=== PATIENT | female | born 1935 | race Caucasian/White ===

== ENCOUNTER 2021-10-30 10:12 | Outpatient (CLI) | payer OTHER, SELFPAY ==
[2021-10-30 14:02] LABS: Chloride* 108 mmol/L (96-114); Sodium* 139 mmol/L (135-149)
[2021-10-30 14:03] LABS: Potassium* 4.3 mmol/L (3.6-5.1)
[2021-10-30 14:05] LABS: Carbon Dioxide* 32 mmol/L (20-32); Creatinine* 0.9 mg/dL (0.5-1.5); Estimated Glomerular Filt Rate 63.04
[2021-10-30 14:06] LABS: Blood Urea Nitrogen* 17 mg/dL (7-30); Calcium* 9.5 mg/dL (8.4-10.6); Glucose* 101 mg/dL (60-115)
== END 2021-10-30 10:13 | disposition home or self-care (01) ==
LOC: FRMREF 10:13
PROVIDERS: PCP Family Medicine; Visit Provider Family Medicine
DX: Z01.810 Encounter for preprocedural cardiovascular examination (principal); Z01.818 Encounter for other preprocedural examination
CPT/HCPCS: 80048

== ENCOUNTER 2021-11-12 09:50 | Outpatient (CLI) | payer OTHER, SELFPAY | END 2021-11-12 09:51 | disposition home or self-care (01) | PROVIDERS: PCP Family Medicine; Visit Provider Orthopaedic Surgery Sports Medicine | DX: Z01.818 Encounter for other preprocedural examination (principal) | CPT/HCPCS: 36415; 86850; 86900; 86901 ==

== ENCOUNTER 2021-11-14 09:29 | Day surgery (SDC) | payer OTHER, SELFPAY ==
[2021-11-14] VITALS (22 sets, daily range): BP systolic 87–152; BP diastolic 49–79; PULSE 45–109; RESP 14–20; TEMP 35.3–36.6; O2SAT 91–99; BMI 25.0
[2021-11-14] MEDS: LACTATED RINGERS 1000 ML 1,000 ML 35 ML IV (10:30)
[2021-11-14] MEDS: LACTATED RINGERS 1000 ML 1,000 ML 100 ML IV (10:30)
[2021-11-14] MEDS: SODIUM CHLORIDE 0.9 % (FLUSH) 10 ML SYRINGE IVF (11:13)
[2021-11-14] MEDS: OXYCODONE (CR) 10 MG TAB.ER.12H PO (11:20)
[2021-11-14] MEDS: CELECOXIB 200 MG CAPSULE PO ×2 (11:20→21:29)
[2021-11-14] MEDS: ACETAMINOPHEN 500 MG TABLET 1000 MG PO ×2 (11:20→18:08)
--- NOTE | 2021-11-14 11:28 | CRLHL7_ITS ---
For Patients: As a result of the Cures Act, medical imaging exams and procedure reports are released immediately into your electronic medical record. You may view this report before your referring provider. If you have questions, please contact your health care provider. Indication: Intra op ALLAN exam. Technique: Fluoroscopy provided during left hip arthroplasty. 44.9 seconds fluoro time. One image. Comparison: None. Findings/Impression : Fluoroscopic spot image obtained during left hip arthroplasty. Dictated by Hali Arana MD @ 11/14/2021 3:17:13 PM (Electronically Signed)
--- NOTE | 2021-11-14 11:46 | SUR.PREOP ---
TIME?OUT:?1148, left hip PT/RN/MDA?VERIFICATION?OF?SURGICAL?SITE,?PROCEDURE,?AND?CONSENT OBTAINED?PRIOR?TO?INVASIVE?PROCEDURE.
[2021-11-14] MEDS: MIDAZOLAM HCL 1 MG/ML inj IVP (11:48)
[2021-11-14] MEDS: fentaNYL 100 MCG/2 ML inj IVP (11:48)
[2021-11-14] MEDS: CEFAZOLIN 1 GM inj IVP (12:55)
--- NOTE | 2021-11-14 13:15 | W.PM.NB ---
Nerve Block Nerve Block Date Seen: 11/14/21 Type of block requested by surgeon for post-operative analgesia: TAD/LFCN Side: left Time out performed: Yes Verification of patient name: Yes Verification of date of : Yes Site marking: site marked Name of person performing procedure: Paul Continuous monitoring Was continuous monitoring of O2 sat, B/P, monitoring specialist, recorded every 15 minutes?: Yes Procedure Checklist: sterile prep, needles and gloves Ultrasound guided. Images saved: Yes Medications given in 5ml increments after negative aspiration: Ropivicaine %: 0.5 mL: 20 Needle gauge: 20 Decadron (mg): 10 Precedex (mcg): 25 Patient tolerated procedure well: Yes Additional comments: Needle noted adjacent to nerve Block Charges Block Charge (with Pro Fee): Other Periph Nerve Block Use of Ultrasound Machine for Block: Yes- US Guidance/pain block
--- NOTE | 2021-11-14 13:28 | SUR.OPER ---
3000cc BAG NACL USED FOR IRRIGATION IN THE LEFT HIP WITH PULSE/WOOD TREATING INSPECTOR BY Efrain AT 13:46
--- NOTE | 2021-11-14 13:37 | SUR.OPER ---
? PATIENT QUESTIONS ANSWERED SATISFACTORILY PREOPERATIVELY.? PATIENT BROUGHT TO OR #3 PER CART.? Patient positioned supine on OR #3 bed.?The perioperative?team supported arms bilaterally on arm boards.? Final approval of positioning by surgeon.?
--- NOTE | 2021-11-14 14:20 | CRLHL7_ITS ---
For Patients: As a result of the Cures Act, medical imaging exams and procedure reports are released immediately into your electronic medical record. You may view this report before your referring provider. If you have questions, please contact your health care provider. Indication: Postop left ALLAN. Technique: Pelvis and left hip 2 views. Comparison: MRI left hip 10/05/2021. Findings: Interval postoperative changes of left total hip arthroplasty. Hardware appears intact and well positioned. No acute fracture identified. Postoperative soft tissue gas about the left hip. Degenerative changes of the right hip and pubic symphysis. Impression: Intact left ALLAN with expected immediate postoperative findings. Dictated by Hali Arana MD @ 11/14/2021 3:19:58 PM (Electronically Signed)
--- NOTE | 2021-11-14 14:31 | P.ORPRC_ITS ---
Procedure Note Date of procedure: 11/14/21 Procedure: PREOPERATIVE DIAGNOSIS: 1. Left hip osteoarthritis, severe, primary POSTOPERATIVE DIAGNOSIS: 1. Left hip osteoarthritis, severe, primary PROCEDURE: 1. Left total hip arthroplasty-anterior approach 2. 06499 - intraoperative fluoroscopy up to 1 hour. SURGEON: Jassi Lopez MD. SOCIAL SERVICE WORKER: Alonzo Mcguire PA-C; Julio César CABA - Of note, a skilled dental front office assistant was critical for this case to aid in patient positioning, tissue retraction, limb manipulation/positioning, dislocation/relocation, patient safety, and closure. ANESTHESIA: Spinal anesthetic EBL: 450 mL IMPLANTS: DePuy J&J uncemented total hip [place] cup size 50, hole eliminator, +4 neutral liner Actis stem, high offset, size 5 +1 mm ceramic 32mm head. COMPLICATIONS: None evident INDICATIONS: The patient is a pleasant 86-year-old female who has experienced severe left hip pain and difficulty bearing weight. Workup included x-rays which revealed severe osteoarthrosis in the hip. Given the deformity, the dysfunction, and the pain, as well as the failure of nonoperative management, recommendation was made for surgery. FINDINGS: Moderate effusion upon entering the joint. Full-thickness chondral loss broadly through the femoral head. Osteophytes around the femoral head/neck junction and perimeter of the acetabulum. DESCRIPTION OF PROCEDURE: Following a thorough discussion of risks, benefits, and alternatives consent was obtained and the left hip was marked. The patient was brought to the operating room and placed supine on the operating table. Induction of anesthesia was undertaken. 1 g IV Ancef and 1 g tranexamic acid was administered within 1 hr of incision preoperatively. Proper time-out was performed identifying proper patient, site, procedure. The operative extremity was prepped and draped in the appropriate sterile fashion using ChloraPrep after the patient was positioned on the [place] table with head in neutral alignment and all bony prominences well padded. C-arm fluoroscopic imaging was utilized to confirm proper pelvis rotation and position, and to get true AP films of both the contralateral left, and the affected left hip. This is for comparison. A longitudinal incision was made starting approximately 1 cm distal to the ASIS, and 3-4 cm lateral. The incision was extended distally aiming toward the lateral border the patella. Sharp incision through skin and bovie cautery through the subcutaneous tissue allowed identification of the TFL fascia. This was sharply divided, and the fascia bluntly released from the muscle fibers as we dissected medial. Upon coming to the medial border, we were able to retract the TFL laterally, and penetrated the deeper fascia and identify the crossing circumflex vessels. These were ligated/cauterized. The rectus was elevated from the capsule, and retractors placed laterally and medially along the femoral neck to help with visualization of the capsule. We then performed an inverted T capsulotomy. The capsule was tagged for later repair. Retractors were placed inside the capsule. The femoral neck was visualized after releasing medially down to the lesser trochanter, along the saddle laterally, and up onto the acetabulum. The femoral neck cut was made in line with our preoperative templating. The head was removed in a single piece, and sized. We turned our attention to acetabular preparation. Initially, the labrum was resected from around the perimeter, the pulvinar was excised, allowing us to visualize the false wall. We started the reaming with a 43 mm reamer. This was medialized down to the true wall. We then enlarged our reamers sequentially up to one size less than the selected cup size. We trialed at the same size and found it to have an excellent fit. The selected cup was then opened, inserted, and impacted in line with the goal of 40-45? of abduction, and 20-25? of anteversion. This was confirmed on C-arm fluoroscopic imaging to be in the appropriate/goal position. Once the cup was placed we placed a hole eliminator and a liner consistent with preop planning. Attention was turned to the femoral preparation. The limb was extended, externally rotated, and adducted. The posteromedial capsule was released, as retractors were placed allowing excellent access to the proximal femur. Initially a box finisher was followed by canal finder followed by various broaches. We broached sequentially up to size noted above, found it to have excellent rotational control, and trialing various heads and necks, revealed that appropriate neck offset, and the above noted head size provided the greatest stability, and yarsani of length, and offset. C-arm fluoroscopic imaging confirmed position of the stem, as well as leg lengths, which were compared with the pre procedure all fluoroscopic images. Trial implants were removed, the real femoral stem inserted, as was the ceramic head. After reducing, the leg was placed through range of motion and stability was confirmed anterior, posterior, and lateral. A 3 min Betadine soak was then performed, and thorough irrigation with normal saline followed. Closure of the capsule was performed with #1 PDS. Bleeding was confirmed to be controlled at this stage, and the TFL fascia was closed with #0 strata fix. Subcutaneous, and subcuticular closure was performed with 2-0 Vicryl and 4-0 Monocryl, respectively. Dressings were applied, and the patient was awoken from anesthesia and transferred the PACU in stable condition. A skilled dental front office assistant was critical for this case to aid in patient positioning, tissue retraction, proximal femur exposure, limb manipulation/positioning, dislocation/relocation, patient safety, and closure. PLAN: 1. Weight bear as tolerated operative extremity. 2. 23 hr perioperative antibiotics. 3. Ice. 4. PT/OT consults for ambulation assistance/mobility education. 5. Social work consult for discharge planning. 6. DVT prophylaxis with at SCDs, Sreedhar Hose, and Xarelto x5 days followed by aspirin for a total of 1 month..
--- NOTE | 2021-11-14 14:46 | W.ANESCHARGE ---
Anesthesia Charges Start Date/Time Anesthesia Start Date: 11/14/21 Anesthesia Start Time: 12:35 Stop Date/Time Anesthesia Stop Date: 11/14/21 Anesthesia Stop Time: 14:45 Summary Emergency: No Extremes of Age: Over 70-CPT 23752
--- NOTE | 2021-11-14 15:17 | W.ANESCHARGE ---
Anesthesia Charges Start Date/Time Anesthesia Start Date: 11/14/21 Anesthesia Start Time: 12:35 Stop Date/Time Anesthesia Stop Date: 11/14/21 Anesthesia Stop Time: 14:45 Summary Emergency: No Extremes of Age: Over 70-CPT 25224
[2021-11-14] MEDS: 0.9 % SODIUM CHLORIDE 500 ML IV (16:50)
[2021-11-14] MEDS: LACTATED RINGERS 1000 ML 1,000 ML 75 ML IV (18:17)
[2021-11-14] MEDS: CEFAZOLIN 1 GM in 0.9 % SODIUM CHLORIDE Mini-bag 100 ML IVPB (18:38)
--- NOTE | 2021-11-14 19:34 | PC.NURSE ---
Pt. alert and oriented x3. Very pleasant and cooperative. Dressing to L Hip, clean, dry, and intact. Lit Hugger applied at 1820 and off at 1850 Temp up to 97.4. Pt. diet advanced to regular diet, tolerated well. No pain reported. Pt. Pressures soft upon settling to unit, 500CC bolus given and patient's status improved. Pt. complained of chest pain when up to floor. EKG done at 1612 showing sinus claude w/T wave abnormalities. MD updated. pt. reports this pain is subsiding.
--- NOTE | 2021-11-14 20:09 | P.IMCN_ITS ---
Date of Consult Patient: [facility] Patient Consult date: 11/14/21 Requesting Physician: Orthopedics Primary Care Provider: Evangelina Pope MD Consult Narrative Reason for consult: Perioperative management of hyperlipidemia. Narrative: Francesca Zaidi is a 86 year old woman who is generally healthy and presents for an elective left total hip arthroplasty due to severe symptomatic left coxarthrosis. Surgery is undertaken successfully without any apparent complications. Patient indicates pain is well controlled at this time. Denies nausea or vomiting. Denies chest heaviness, pressure, tightness, or pain. Denies syncope or near-syncope. Denies palpitations. Denies cough or shortness of breath. Review of Systems Status of ROS: Reports: 6 or more systems reviewed and unremarkable except as noted in History and below Narrative: Her biggest challenge over the recent past has been when attempting to transfer. She indicates that when she sits or lays down she is fine. When she stands or walks she has fine. She states she has significant amount of pain when transferring from any position to another, such as supine to sitting or sitting to standing and vice versa. No recent illnesses. I reviewed her pre medical evaluation per Dr. Tellez early dated 10/30/2021. No contraindications to proceeding with the surgery. COVID testing negative. Denies bowel or bladder concerns. No focal motor neurologic deficits. Has not had a recurrence of her breast cancer. No weight gain or weight loss. [facility] Medical History (Updated 11/14/21 @ 20:18 by Renato Rubio MD) Acute peptic ulcer (12/24/11) Anal fissure (12/24/11) Closed fracture of humerus (11/26/11) Cystocele without uterine prolapse Degeneration of intervertebral disc of lumbosacral region (11/26/11) Hyperlipidemia (11/26/11) Incontinence of feces Insomnia Malignant neoplasm of breast (11/26/11) Osteoarthritis of both hands Osteoma Osteopenia Urge incontinence of urine Surgical History (Updated 11/14/21 @ 20:18 by Renato Rubio MD) Amputation of toe H/O vein stripping History of left breast biopsy (11/26/11) History of mastectomy History of shoulder surgery (11/26/11) History of tubal ligation (11/26/11) Hx of right mastectomy (~07/29/77) S/P right knee arthroscopy Family History Aunt Colorectal cancer Mother Macular degeneration Heart attack Father Hyperlipidemia Parkinsons Glaucoma Intracranial hemorrhage Social History Narrative: Exercises regularly Has 3 children Non-smoker Smoking Status: Never smoker How often do you have a drink containing alcohol: monthly or less Alcohol type: wine How many standard drinks containing alcohol do you have on a typical day: 1 or 2 How often do you have six or more drinks on one occasion: Never AUDIT-C Alcohol total score: 1 Non-prescribed substance use: over the counter (eg: immodium) Non-prescribed substance use details: lutein, acetaminphen, fish oil, multivitamin, calcium Caffeine: Yes (coffee, 2-3 small cups/day) Meds Home Medications and Allergies Home Medications Medication Instructions Recorded Confirmed Type cholecalciferol (vitamin D3) 25 1,000 unit PO DAILY tab 10/30/21 11/14/21 History mcg (1,000 unit) tablet lutein 20 mg-zeaxanthin 1,000 mcg cap PO DAILY cap 10/30/21 10/30/21 History capsule meloxicam 7.5 mg tablet 7.5 mg PO DAILY PRN 10/30/21 11/14/21 History omega 5-zzw-wnw-fish oil 1,000 mg 1 cap PO DAILY 10/30/21 11/14/21 History (120 mg-180 mg) capsule (Fish Oil) simvastatin 20 mg tablet 20 mg PO HS 10/30/21 11/14/21 History Allergies Allergy/AdvReac Type Severity Reaction Status Date / Time No Known Allergies Allergy Verified 11/14/21 10:23 Exam Narrative: Exam Narrative: Awake. Alert. Oriented to self, place, time, situation. Appears comfortable. No acute distress. Articulate and cooperative. Mood and affect are congruent. Lungs are clear to auscultation. Heart tones with regular rhythm. Abdomen with active bowel sounds, soft, nontender. Extremities without edema. No focal motor neurologic deficits. Const: Vital Signs, click to edit/add: Vital Signs - 24 hr 11/14/21 10:38 11/14/21 11:50 11/14/21 11:58 Temperature 97.0 F L 97.0 F L 97.0 F L Pulse Rate 66 55 L 59 L Pulse Rate [Right Pulse Oximeter] Respiratory Rate 20 20 20 Blood Pressure 152/79 H 152/78 H 135/76 Blood Pressure [Le ft Arm] Pulse Oximetry 97 99 98 11/14/21 14:45 11/14/21 14:50 11/14/21 14:55 Temperature 97.2 F L Pulse Rate 67 67 74 Pulse Rate [Right Pulse Oximeter] Respiratory Rate 18 20 20 Blood Pressure 104/57 L 100/58 L 103/61 Blood Pressure [Le ft Arm] Pulse Oximetry 96 96 96 11/14/21 15:00 11/14/21 15:05 11/14/21 15:10 Temperature 97.2 F L Pulse Rate 58 L 57 L 55 L Pulse Rate [Right Pulse Oximeter] Respiratory Rate 18 18 18 Blood Pressure 103/61 104/63 111/64 Blood Pressure [Le ft Arm] Pulse Oximetry 95 98 98 11/14/21 15:16 11/14/21 15:25 11/14/21 15:30 Temperature 96.4 F L 96.4 F L Pulse Rate 58 L 57 L Pulse Rate [Right Pulse Oximeter] Respiratory Rate 18 14 14 Blood Pressure 104/58 L Blood Pressure [Le ft Arm] 92/51 L 87/54 L Pulse Oximetry 98 96 11/14/21 15:45 11/14/21 16:00 11/14/21 16:15 Temperature 96.4 F L 96.4 F L 95.5 F L Pulse Rate Pulse Rate [Right Pulse Oximeter] 45 L 49 L 56 L Respiratory Rate 14 14 14 Blood Pressure Blood Pressure [Le ft Arm] 101/54 L 88/49 L 101/55 L Pulse Oximetry 96 96 96 11/14/21 16:30 11/14/21 17:00 11/14/21 18:00 Temperature 95.5 F L 96.0 F L 97.4 F L Pulse Rate Pulse Rate [Right Pulse Oximeter] 56 L 62 109 H Respiratory Rate 16 16 16 Blood Pressure Blood Pressure [Le ft Arm] 100/51 L 105/50 L 134/68 Pulse Oximetry 91 98 98 11/14/21 19:33 Temperature 97.4 F L Pulse Rate Pulse Rate [Right Pulse Oximeter] 94 Respiratory Rate 16 Blood Pressure Blood Pressure [Le ft Arm] 112/68 Pulse Oximetry 94 Assessment and Plan Assessment and plan (1) Status post left hip replacement: Status: Acute (2) Arthritis of left hip: Status: Acute (3) Hyperlipidemia: Status: Acute (4) Hx of right mastectomy: Status: Acute (5) Malignant neoplasm of breast: Status: Acute Plan 1. Reviewed impression with patient. Answered her questions. 2. Will follow with Orthopedic surgery while patient is in hospital. 3. Agree with venous thromboembolism prophylactic efforts. 4. Agree with perioperative antibiotic prophylaxis. 5. Will hold her statin medication while in the hospital. 6. Agree with Pulmonary Hygiene efforts postoperatively.
[2021-11-14] MEDS: SENNOSIDES 1 TAB TABLET 2 TAB PO (21:29)
[2021-11-14] MEDS: diphenhydrAMINE 50 MG/ML inj IVP (21:40)
[2021-11-14] MEDS: OXYCODONE 5 MG TABLET PO (22:22)
[2021-11-15] MEDS: ACETAMINOPHEN 500 MG TABLET 1000 MG PO ×3 (00:15→12:53)
[2021-11-15 03:00] VITALS: BP 117/71; PULSE 79; RESP 16; TEMP 36.6; O2SAT 93
[2021-11-15] MEDS: CEFAZOLIN 1 GM in 0.9 % SODIUM CHLORIDE Mini-bag 100 ML IVPB ×2 (03:19→10:35)
[2021-11-15] MEDS: OXYCODONE 5 MG TABLET PO (03:19)
[2021-11-15] MEDS: LACTATED RINGERS 1000 ML 1,000 ML 75 ML IV (06:23)
--- NOTE | 2021-11-15 06:52 | PC.NURSE ---
Shift 7p-7a: Pt. AOx4, following commands, VSS. Pt. tolerating weight bearing on LT leg, sat in chair last night and has been up to bedside commode for voiding. Pt. states she has slight pain well controlled by scheduled Tylenol and 5mg Oxycodone PRN. Ice pack applied to surgical site, dressing is C/D/I. Pt. receiving LR @ 75mL/hr until PO intake is adequate.
[2021-11-15 07:00] VITALS: BP 96/56; PULSE 85; RESP 18; TEMP 37.1; O2SAT 95
[2021-11-15 07:23] LABS: Hematocrit 31.4 % (33.0-51.0); Hemoglobin* 10.3 gm/dL (12.0-16.0); Immature Granulocytes Abs Auto 0.01 K/uL (0.00-0.30); Lymphocytes Percent Auto 7.7 % (20-44); Mean Corpuscular HGB Conc 33 gm/dL (32-36); Mean Corpuscular Hemoglobin 30 pg (26-34); Mean Corpuscular Volume 91 fL (80-100); Monocytes Percent Auto 6.5 % (0.0-11.0); Neutrophils Percent Auto 85.7 % (42.0-72.0); Platelet Count* 229 K/uL (140-440); RDW Coefficient of Variation % 13.4 % (11.5-15.5); Red Blood Count 3.47 m/uL (4.00-5.20); White Blood Count* 11.92 K/uL (4.50-11.00)
[2021-11-15 07:54] LABS: Slide Review Reflex No
--- NOTE | 2021-11-15 08:03 | PM.ORPN ---
Subjective Subjective Date Seen: 11/15/21 Principal diagnosis: Status postop day 1 left total hip arthroplasty - anterior approach Interval history: Patient reports doing well. Reported some chest pain immediately postop that quickly resolved; no residual symptoms. No acute events overnight. Pain managed with scheduled /PRN medications and ice. DVT prophylaxis rivaroxaban, bilateral knee high Sreedhar stockings, and SCDs. Denies fevers, chills, aches, N/V, CP, chest tightness or heaviness, SOB/MAURICIO, tachycardia, or lightheadedness. Ortho Exam Narrative Exam Narrative: -Patient appears comfortable in bed, eating breakfast; no apparent acute distress -Alert and oriented times 3 -Operative hip swollen; soft tissues supple; no erythema. No ecchymosis. No excessive warmth. -Surgical dressing clean, dry, intact; no obvious drainage, no erythematous streaking peripheral to the bandage -Bilateral calves soft and supple; no significant swelling, edema, tenderness, erythema, discoloration, warmth, or palpable cords -2+ DP/PT pulses, intact dermatomes and myotomes distally (5/5 strength). Noted numbness lateral femoral cutaneous nerve distribution; notes sensation to deeper touch Const Vital Signs, click to edit/add: Vital Signs - 24 hr 11/14/21 10:38 11/14/21 11:50 11/14/21 11:58 Temperature 97.0 F L 97.0 F L 97.0 F L Pulse Rate 66 55 L 59 L Pulse Rate [Right Pulse Oximeter] Respiratory Rate 20 20 20 Blood Pressure 152/79 H 152/78 H 135/76 Blood Pressure [Left Arm] Pulse Oximetry 97 99 98 11/14/21 14:45 11/14/21 14:50 11/14/21 14:55 Temperature 97.2 F L Pulse Rate 67 67 74 Pulse Rate [Right Pulse Oximeter] Respiratory Rate 18 20 20 Blood Pressure 104/57 L 100/58 L 103/61 Blood Pressure [Left Arm] Pulse Oximetry 96 96 96 11/14/21 15:00 11/14/21 15:05 11/14/21 15:10 Temperature 97.2 F L Pulse Rate 58 L 57 L 55 L Pulse Rate [Right Pulse Oximeter] Respiratory Rate 18 18 18 Blood Pressure 103/61 104/63 111/64 Blood Pressure [Left Arm] Pulse Oximetry 95 98 98 11/14/21 15:16 11/14/21 15:25 11/14/21 15:30 Temperature 96.4 F L 96.4 F L Pulse Rate 58 L 57 L Pulse Rate [Right Pulse Oximeter] Respiratory Rate 18 14 14 Blood Pressure 104/58 L Blood Pressure [Left Arm] 92/51 L 87/54 L Pulse Oximetry 98 96 11/14/21 15:45 11/14/21 16:00 11/14/21 16:15 Temperature 96.4 F L 96.4 F L 95.5 F L Pulse Rate Pulse Rate [Right Pulse Oximeter] 45 L 49 L 56 L Respiratory Rate 14 14 14 Blood Pressure Blood Pressure [Left Arm] 101/54 L 88/49 L 101/55 L Pulse Oximetry 96 96 96 11/14/21 16:30 11/14/21 17:00 11/14/21 18:00 Temperature 95.5 F L 96.0 F L 97.4 F L Pulse Rate Pulse Rate [Right Pulse Oximeter] 56 L 62 109 H Respiratory Rate 16 16 16 Blood Pressure Blood Pressure [Left Arm] 100/51 L 105/50 L 134/68 Pulse Oximetry 91 98 98 11/14/21 19:33 11/14/21 20:00 11/14/21 21:00 Temperature 97.4 F L 97.6 F 97.7 F Pulse Rate Pulse Rate [Right Pulse Oximeter] 94 92 94 Respiratory Rate 16 18 18 Blood Pressure Blood Pressure [Left Arm] 112/68 108/64 122/70 Pulse Oximetry 94 95 11/14/21 23:00 11/15/21 03:00 Temperature 97.9 F 97.9 F Pulse Rate Pulse Rate [Right Pulse Oximeter] 87 79 Respiratory Rate 16 16 Blood Pressure Blood Pressure [Left Arm] 108/59 L 117/71 Pulse Oximetry 94 93 Assessment and Plan Assessment and plan (1) Status post left hip replacement: Problem details: Anterior approach Status: Acute Assessment and Plan: - Complete 23 hour perioperative antibiotics. - PT/OT consult for education and assistance. - Social work consult for discharge planning - Prescribed analgesics as needed - DVT prophylaxis: Rivaroxaban, bilateral knee high Sreedhar Hose stockings and SCDs - Anticipation is for discharge to home with spouse (11/15/2021) if the patient remains medically stable, pain is controlled, and they are safe with mobilization. (2) Arthritis of left hip: Status: Acute (3) Hyperlipidemia: Status: Acute (4) Hx of right mastectomy: Status: Acute (5) Malignant neoplasm of breast: Status: Acute (6) Acute postoperative anemia due to expected blood loss: Problem details: Surgically related Status: Acute Assessment and Plan: Hgb 10.3, asymptomatic (pt denies CP, SOB/MAURICIO, tachycardia, tachypnea, lightheadedness or dizziness)
--- NOTE | 2021-11-15 08:11 | P.DS_ITS ---
DS: Providers Provider Date Seen: 11/15/21 Date of admission: 11-14-21 to med/surg recovery Primary care physician: Evangelina Pope MD Consults: 11/14/21 15:56 Consult to Occupational Therapy [CONS] Routine Comment: Reason(s) for OT Consult:: ADLs Prior to Discharge Any Restrictions?:: No Restrictions Comment: Consult to Physical Therapy [CONS] Routine Comment: Ambulate in the quinones today Reason(s) for PT Consult:: THR TX Protocol POD#0 Any Restrictions?:: Wt Bearing as Tolerated Comment: Nursing Activity: See nursing activity order Consult to Physician [CONS] Routine Comment: Consulting Provider: Hospitalists Has provider been notified: No Consult to Horse Groomer [CONS] Routine Comment: Reason for Consult:: Discharge Planning Needs 11/14/21 16:02 Consult to Physical Therapy [CONS] Routine Comment: Ambulate in the quinones today Reason(s) for PT Consult:: Evaluate and Treat Any Restrictions?:: No Restrictions Comment: Nursing Activity Attending Physician on discharge: Jassi Lopez MD Date of Discharge: 11/15/21 DS: Diagnosis Discharge Diagnosis (1) Status post left hip replacement: Status: Acute Problem details: Anterior approach (2) Arthritis of left hip: Status: Acute (3) Hyperlipidemia: Status: Acute (4) Hx of right mastectomy: Status: Acute (5) Malignant neoplasm of breast: Status: Acute (6) Acute postoperative anemia due to expected blood loss: Status: Acute Problem details: Surgically related DS: Summary Hospital Course Hospital Course: The patient has a history of left hip osteoarthritis, primary, severe. After appropriate preoperative evaluation, the patient underwent left total hip arthroplasty. Postoperatively given anticoagulation for deep vein thrombosis prophylaxis, rivaroxaban They progressed to PT/OT and were felt ready and pr epared for discharged to home with appropriate pain medication and anticoagulation medications. Status at Discharge Functional status at discharge: uses cane/walker Overall status at discharge: patient is progressing back to baseline Time Spent with Patient Time attestation: Total time spent providing and/or coordinating discharge services: Time spent: Greater than 30 minutes Exam Const: Vital Signs, click to edit/add: Vital Signs - 24 hr 11/14/21 10:38 11/14/21 11:50 11/14/21 11:58 Temperature 97.0 F L 97.0 F L 97.0 F L Pulse Rate 66 55 L 59 L Pulse Rate [Right Pulse Oximeter] Respiratory Rate 20 20 20 Blood Pressure 152/79 H 152/78 H 135/76 Blood Pressure [Le ft Arm] Pulse Oximetry 97 99 98 11/14/21 14:45 11/14/21 14:50 11/14/21 14:55 Temperature 97.2 F L Pulse Rate 67 67 74 Pulse Rate [Right Pulse Oximeter] Respiratory Rate 18 20 20 Blood Pressure 104/57 L 100/58 L 103/61 Blood Pressure [Le ft Arm] Pulse Oximetry 96 96 96 11/14/21 15:00 11/14/21 15:05 11/14/21 15:10 Temperature 97.2 F L Pulse Rate 58 L 57 L 55 L Pulse Rate [Right Pulse Oximeter] Respiratory Rate 18 18 18 Blood Pressure 103/61 104/63 111/64 Blood Pressure [Le ft Arm] Pulse Oximetry 95 98 98 11/14/21 15:16 11/14/21 15:25 11/14/21 15:30 Temperature 96.4 F L 96.4 F L Pulse Rate 58 L 57 L Pulse Rate [Right Pulse Oximeter] Respiratory Rate 18 14 14 Blood Pressure 104/58 L Blood Pressure [Le ft Arm] 92/51 L 87/54 L Pulse Oximetry 98 96 11/14/21 15:45 11/14/21 16:00 11/14/21 16:15 Temperature 96.4 F L 96.4 F L 95.5 F L Pulse Rate Pulse Rate [Right Pulse Oximeter] 45 L 49 L 56 L Respiratory Rate 14 14 14 Blood Pressure Blood Pressure [Le ft Arm] 101/54 L 88/49 L 101/55 L Pulse Oximetry 96 96 96 11/14/21 16:30 11/14/21 17:00 11/14/21 18:00 Temperature 95.5 F L 96.0 F L 97.4 F L Pulse Rate Pulse Rate [Right Pulse Oximeter] 56 L 62 109 H Respiratory Rate 16 16 16 Blood Pressure Blood Pressure [Le ft Arm] 100/51 L 105/50 L 134/68 Pulse Oximetry 91 98 98 11/14/21 19:33 11/14/21 20:00 11/14/21 21:00 Temperature 97.4 F L 97.6 F 97.7 F Pulse Rate Pulse Rate [Right Pulse Oximeter] 94 92 94 Respiratory Rate 16 18 18 Blood Pressure Blood Pressure [Le ft Arm] 112/68 108/64 122/70 Pulse Oximetry 94 95 11/14/21 23:00 11/15/21 03:00 Temperature 97.9 F 97.9 F Pulse Rate Pulse Rate [Right Pulse Oximeter] 87 79 Respiratory Rate 16 16 Blood Pressure Blood Pressure [Le ft Arm] 108/59 L 117/71 Pulse Oximetry 94 93 DS: Data Data Completed and Pending Labs on day of discharge: Labs from last 24 hours 11/15/21 11/15/21 06:33 06:33 WBC 11.92 H RBC 3.47 L Hgb 10.3 L Hct 31.4 L MCV 91 MCH 30 MCHC 33 RDW Coeff of Farooq 13.4 Plt Count 229 Neut % (Auto) 85.7 H Lymph % (Auto) 7.7 L Robeson % (Auto) 6.5 Eos % (Auto) 0.0 Baso % (Auto) 0.0 Neut # (Auto) 10.20 H Lymph # (Auto) 0.90 Robeson # (Auto) 0.80 Eos # (Auto) 0.00 Baso # (Auto) 0.00 Abs Immat Gran (auto) 0.01 Sodium Pending Potassium Pending Chloride Pending Carbon Dioxide Pending BUN Pending Creatinine Pending Estimated GFR Pending Glucose Pending Calcium Pending Discharge Plan Discharge Disposition: Home, Self-Care Discharging Surgeon: Alonzo Mcguire Follow-Up Appointment: See below Prescriptions: New oxycodone 5 mg tablet 2.5 - 5 mg PO Q4-6H MDD 6 PRN (Reason: pain) Qty: 30 0RF Rx Instructions: Take as needed for pain: 2.5mg mild pain, 5mg moderate-severe pain. Wean as tolerated. sennosides-docusate sodium [Senna-S] 8.6-50 mg tablet 1 - 2 tab-cap PO BID Qty: 60 0RF Rx Instructions: Hold medication if experiencing loose stools. rivaroxaban 10 mg tablet 10 mg PO DAILY Qty: 4 0RF Rx Instructions: Medication for deep vein clot prevention post surgery. Complete this medication before starting Aspirin. aspirin 81 mg tablet,delayed release (DR/EC) 81 mg PO BID Qty: 50 0RF Rx Instructions: For deep vein clot prevention post surgery. Start this medication after completing Rivaroxaban. Take twice daily. acetaminophen 500 mg capsule 500 - 1,000 mg PO Q6-8H MDD 4000mg PRNQty: 100 0RF Held meloxicam 7.5 mg tablet 7.5 mg PO DAILY PRN0RF Hold Instructions: Resume on 11/20/21. Hold medication while taking rivaroxaban. No Action cholecalciferol (vitamin D3) 25 mcg (1,000 unit) tablet 1,000 unit PO DAILY 0RF lutein-zeaxanthin 20 mg- 1,000 mcg capsule PO DAILY 0RF omega 4-gbz-zrf-fish oil [Fish Oil] 1,000 mg (120 mg-180 mg) capsule 1 cap PO DAILY 0RF simvastatin 20 mg tablet 20 mg PO HS 0RF Activity Level: Activity as Tolerated, Weight Bearing as Tolerated, Use Cane and Use Walker Activity Detail: Wound: ?Do not remove original dressing; we will remove this at first postop visit in 1 week. Only remove dressing if integrity is in question. ?No immersing wound in water; showering okay; light scrub with your hand and body soap, rinse, dab dry ?Sutures are under the skin, will dissolve; allow surgical glue to come off naturally; do not scrub the wound or apply ointments/lotions ?Call our office with any redness that streaks, excessive drainage from the wound, or wound gapping. Ice/Elevate: ?Ice as needed for swelling and discomfort (cryocuff or ice pack); elevate frequently above the heart ALEC socks: ?Wear for 1 month, remove for 1 hour 3 times per day ?These are frustrating to take on/off, but are important for blood clot pr evention for 1 month after surgery Blood Clot Prevention (DVT): ?Medication: Rivaroxaban, followed by aspirin once rivaroxaban medication regimen is complete Driving: ?Do not drive while taking narcotic pain medication ?Anticipate 4-6 weeks no driving if operative leg is driving leg Dental: ?No elective dental work for 6 months post-op. If there is an urgent/emergent dental need, contact our office for an antibiotic prescription. Smoking/Alcohol: ?Do not smoke; do no drink alcohol especially when taking postoperative oral narcotic medication Seek Care from you Primary Care Provider if you experience the following issues in the postoperative phase and beyond: ?Bacterial infections such as: pneumonia, bacterial skin infection (cellulitis), UTI, high fever, chills unrelated to the operative body part - call your primary care physician urgently for treatment in hopes to protect your health and the metal implant. Referrals: ?PT, OT per patient preference - evaluate treat total left total hip arthroplasty protocol (the training, ROM, ADLs, knee-high Alec socks) Follow up: ?Ortho surgeon follow-up in 6 weeks; repeat radiographs AP pelvis, cross-table lateral left hip ?PA-C visit in 1 week *If there are any acute concerns regarding your surgery, please call our orthopedic clinic ([phone]) Discharge Diet: Regular Patient Instructions: Acetaminophen (By mouth), Aspirin (By mouth), Oxycodone, Rapid Release (By mouth), Rivaroxaban (By mouth), Senna (By mouth), Surgical Site Infections (DC), Anterior Hip Replacement (DC) Forms: Work/Release Restrictions Follow-up: [facility] [Other] - 11/22/21 12:00 pm Alonzo Mcguire, JEANINEC [Physician Surgical First Assistant] - 11/20/21 9:00 am ([facility]) Evangelina Pope MD [Primary Care Provider] - Discharge Orders: Discharge Order (Routine); Ordered 11/15/21 Ordered By: Alonzo Mcguire
[2021-11-15 08:26] LABS: Chloride* 108 mmol/L (96-114)
[2021-11-15 08:27] LABS: Potassium* 4.1 mmol/L (3.6-5.1); Sodium* 136 mmol/L (135-149)
[2021-11-15 08:29] LABS: Creatinine* 0.8 mg/dL (0.5-1.5); Est. Creatinine Clearance* 36.16; Estimated Glomerular Filt Rate 73 ml/min
[2021-11-15 08:30] LABS: Blood Urea Nitrogen* 17 mg/dL (7-30); Calcium* 8.4 mg/dL (8.4-10.6); Carbon Dioxide* 24 mmol/L (20-32); Glucose* 115 mg/dL (60-115)
[2021-11-15 08:31] VITALS: PULSE 85; RESP 16
[2021-11-15] MEDS: SENNOSIDES 1 TAB TABLET 2 TAB PO (09:30)
[2021-11-15] MEDS: RIVAROXABAN 10 MG TABLET PO (09:30)
[2021-11-15] MEDS: CELECOXIB 200 MG CAPSULE PO (09:36)
--- NOTE | 2021-11-15 13:18 | PC.NURSE ---
Patient pleasant and cooperative. Moving well in room with SBA and walker. surgical dressing CDI. Tylenol given prior to d/c. pain minimal at d/c. discussed f/u appointments and medication regimen. pt discharged home with spouse at 1300.
== END 2021-11-15 13:00 | disposition home or self-care (01) ==
LOC: OR 09:30 → MEDSURG 15:58
PROVIDERS: PCP Family Medicine; Visit Provider Orthopaedic Surgery Sports Medicine
PROC: (CPT 27130; principal; 2021-11-14 12:00)
DX: M16.12 Unilateral primary osteoarthritis, left hip (principal); E78.5 Hyperlipidemia, unspecified; M51.37 Other intervertebral disc degeneration, lumbosacral region; Z85.3 Personal history of malignant neoplasm of breast; M85.80 Other specified disorders of bone density and structure, unspecified site
CPT/HCPCS: 27130; 01214; 36415; 64445; 73501; 76000; 76942; 80048; 85025; 93005; 97116; 97161; 97165; 97530; 99100; A9270; C1776; J0690; J1100; J1200; J2250; J2405; J2704; J2795; J3010; J7120

== ENCOUNTER 2021-11-17 09:18 | Emergency (ER) | payer OTHER, SELFPAY ==
[2021-11-17 09:26] VITALS: BP 147/78; PULSE 78; RESP 20; TEMP 36.7; O2SAT 96; BMI 23.2
[2021-11-17 10:00] VITALS: BP 138/81; PULSE 75; O2SAT 96
[2021-11-17 10:53] LABS: Basophils Absolute Auto 0.02 K/uL (0.00-0.30); Basophils Percent Auto 0.2 % (0.0-3.0); Eosinophils Absolute Auto 0.06 K/uL (0.00-0.50); Eosinophils Percent Auto 0.7 % (0.0-7.0); Hematocrit 30.5 % (33.0-51.0); Immature Granulocytes Abs Auto 0.01 K/uL (0.00-0.30); Lymphocytes Percent Auto 14.1 % (20-44); Mean Corpuscular HGB Conc 33 gm/dL (32-36); Mean Corpuscular Hemoglobin 30 pg (26-34); Mean Corpuscular Volume 90 fL (80-100); Monocytes Percent Auto 9.4 % (0.0-11.0); Neutrophils Percent Auto 75.5 % (42.0-72.0); Platelet Count* 214 K/uL (140-440); RDW Coefficient of Variation % 13.7 % (11.5-15.5); Red Blood Count 3.38 m/uL (4.00-5.20); White Blood Count* 8.02 K/uL (4.50-11.00)
[2021-11-17 10:58] LABS: Slide Review Reflex No
[2021-11-17 11:06] LABS: Albumin* 3.5 g/dL (3.3-5.0)
[2021-11-17 11:07] LABS: Chloride* 105 mmol/L (96-114); Potassium* 3.8 mmol/L (3.6-5.1); Sodium* 137 mmol/L (135-149)
[2021-11-17 11:09] LABS: Aspartate Amino Transferase* 70 U/L (12-35); Bilirubin Total* 0.8 mg/dL (0.1-1.5); Blood Urea Nitrogen* 12 mg/dL (7-30); Carbon Dioxide* 27 mmol/L (20-32); Creatinine* 0.8 mg/dL (0.5-1.5); Estimated Glomerular Filt Rate 73 ml/min; Total Protein* 6.5 g/dL (6.0-8.3)
[2021-11-17 11:10] LABS: Alanine Aminotransferase* 26 U/L (4-35); Alkaline Phosphatase* 65 U/L (40-150); Calcium* 8.7 mg/dL (8.4-10.6); Glucose* 103 mg/dL (60-115)
[2021-11-17 11:19] LABS: NT Pro B Type NatriureticPept* 670 PG/mL (0-450)
[2021-11-17 11:22] VITALS: BP 155/76; PULSE 77; RESP 16; O2SAT 98
--- NOTE | 2021-11-17 11:22 | ED_ITS ---
HPI - General Adult General Date Seen: 11/17/21 Chief complaint: Shortness of Breath/Dyspnea Stated complaint: Nausea, fever, Post OP Time Seen by Provider: 11/17/21 09:24 Source: patient and family History of Present Illness HPI narrative: Patient is an 86-year-old female who is status post total hip arthroplasty on November 14. She tells me that the surgery went smoothly and she left the hospital the next day. She is taking Xarelto for DVT prophylaxis. She denies any significant swelling or lower extremity pain. She has been able to be ambulatory with her walker. She reports that she called Orthopedics today because she was up multiple times last night needing to urinate. On occasion she was not able to make it to the bathroom in time. She tells me that it just seemed like it was coming out of her too fast. She denies dysuria or hematuria. She has not had abdominal pain. She says that she is having bowel movements and does not report significant problems with constipation. She has been taking oxycodone for pain, says her last dose was yesterday. She has had some trouble with nausea but no vomiting. She is not coughing, maybe had a temp of a 100? at home today. Apparently, when she was on the phone with Orthopedics her told them that he thought when she was coming back from the bathroom it looked like she was breathing hard. She denies any shortness of breath. She has not had any chest pain or palpitations. No lightheadedness. She denies weakness, but her apparently told Orthopedics that it looked like she was weak as well. She had some postoperative anemia. It was relayed to nursing staff here that she was coming in for shortness of breath and weakness. In my conversation with her she seems to feel that this is not accurate, that her primary concern are these urinary symptoms. Her seems to feel that the issue is more that she looks like she was winded coming back from the bathroom, but he does acknowledge that she was up multiple times needing to go to the bathroom, and did not always make it. Related Data Home Medications Medication Instructions Recorded Confirmed cholecalciferol (vitamin D3) 25 1,000 unit PO DAILY tab 10/30/21 11/14/21 mcg (1,000 unit) tablet lutein 20 mg-zeaxanthin 1,000 mcg cap PO DAILY cap 10/30/21 10/30/21 capsule meloxicam 7.5 mg tablet 7.5 mg PO DAILY PRN 10/30/21 11/14/21 omega 1-yet-gyh-fish oil 1,000 mg 1 cap PO DAILY 10/30/21 11/14/21 (120 mg-180 mg) capsule (Fish Oil) simvastatin 20 mg tablet 20 mg PO HS 10/30/21 11/14/21 Previous Rx's Medication Instructions Recorded acetaminophen 500 mg capsule 500 - 1,000 mg PO Q6-8H PRN #100 11/15/21 cap MDD 4000mg aspirin 81 mg tablet,delayed 81 mg PO BID #50 tab 11/15/21 release oxycodone 5 mg tablet 2.5 - 5 mg PO Q4-6H PRN #30 tab 11/15/21 MDD 6 rivaroxaban 10 mg tablet 10 mg PO DAILY #4 tab 11/15/21 sennosides 8.6 mg-docusate sodium 1 - 2 tab-cap PO BID #60 tab 11/15/21 50 mg tablet (Senna-S) Allergies Allergy/AdvReac Type Severity Reaction Status Date / Time No Known Allergies Allergy Verified 11/17/21 12:28 Review of Systems Status of ROS: Reports: 10 or more systems reviewed and unremarkable except as noted in History and below [facility] Medical History Acute peptic ulcer (12/24/11) Anal fissure (12/24/11) Closed fracture of humerus (11/26/11) Cystocele without uterine prolapse Degeneration of intervertebral disc of lumbosacral region (11/26/11) Hyperlipidemia (11/26/11) Incontinence of feces Insomnia Malignant neoplasm of breast (11/26/11) Osteoarthritis of both hands Osteoma Osteopenia Urge incontinence of urine Surgical History Amputation of toe H/O vein stripping History of left breast biopsy (11/26/11) History of mastectomy History of shoulder surgery (11/26/11) History of tubal ligation (11/26/11) Hx of right mastectomy (~07/29/77) S/P right knee arthroscopy Family History Aunt Colorectal cancer Mother Macular degeneration Heart attack Father Hyperlipidemia Parkinsons Glaucoma Intracranial hemorrhage Social History Narrative: Exercises regularly Has 3 children Non-smoker Smoking Status: Never smoker Do you use any of these nicotine containing products: None Second hand tobacco smoke exposure: Yes How often do you have a drink containing alcohol: monthly or less Alcohol type: wine How many standard drinks containing alcohol do you have on a typical day: 1 or 2 How often do you have six or more drinks on one occasion: Never AUDIT-C Alcohol total score: 1 Non-prescribed substance use: over the counter (eg: immodium) Non-prescribed substance use details: lutein, acetaminphen, fish oil, multivitamin, calcium Caffeine: Yes (coffee, 2-3 small cups/day) service: No Exam Narrative: Exam Narrative: Vital signs as noted below. In general, an alert, nontoxic elderly woman. Breathing easily. Looks comfortable. Head: Normocephalic, atraumatic. Eyes: Pupils are equal reactive. Extraocular movements are full. Conjunctivae are normal. ENT: Mucous membranes are moist. Neck: Supple without lymphadenopathy. Heart: Regular rate and rhythm. No murmur or rub. Lungs: Clear bilaterally. No increased work of breathing, crackles or wheezes. Abdomen: Soft and nontender. No organomegaly. Back: No CVA tenderness. Extremities: Well perfused. No edema. No calf tenderness. Pulses intact. Dressing intact, no significant swelling, erythema, tenderness. Neurologic: Patient is alert and oriented to person and place. Speech is fluent. Face is symmetric. Moves all extremities equally. Affect: Normal. Skin: Warm and dry. Well perfused. Const: Vital Signs, click to edit/add: Vital Signs - 24 hr 11/17/21 09:26 11/17/21 10:00 11/17/21 11:22 Temperature 98.0 F Pulse Rate [Left P ulse Oximeter] 78 75 77 Respiratory Rate 20 16 Blood Pressure [Le ft Upper Arm] 147/78 H 138/81 155/76 H Pulse Oximetry 96 96 98 Documenting provider has reviewed patient's vital signs: yes Course Course Hospital Course: Following initial evaluation, patient had an EKG which by my review showed a normal sinus rhythm, ventricular rate of 75 beats per minute. No acute ST segment changes. There is 1 beat in leads 2 and 3 were she has a mm of ST depression but I think this is artifactual. No reciprocal changes. Her white blood cell count is normal. Her hemoglobin is 10. Like panel is normal. BUN is 12, creatinine is 0.8. Electrolytes are normal. Troponin is less than 0.01. BNP is 670. I am awaiting D-dimer before ordering chest imaging. I am not entirely sure what to make of her presentation. She denies shortness of breath, she certainly does not look short of breath on room air here. Her D-dimer maybe a little bit difficult to use given how recently postop she is. If it is negative I feel comfortable using this to rule out pulmonary embolism. If it is positive, will likely need to do a CT scan of the chest. If we do not find anything, will see how she looks ambulating with pulse oximetry, but at rest she certainly looks comfortable. She is not complaining of any cough, not febrile here Lungs are clear. have not yet gotten a urine sample from her. Ultimately D-dimer was elevated, she had a CT scan of the chest with IV contrast which by my review did not show evidence of pulmonary embolism, pulmonary edema, infiltrate or other acute abnormality. The final radiology read was negative for PE. She had mild bilateral apical pleural scarring and a small hiatal hernia as incidental findings. I did do x-rays of the abdomen just to make sure that she did not have significant constipation contributing to her urinary incontinence, and by my review these did not show significant stool burden. Final radiology report for these was unremarkable as well. She continues to look well here without significant complaints. I think her 's concerns a bout her breathing or more dominant than her own. She is ambulatory in the emergency department without difficulty. I spoke with Kitty, the Orthopedic PA, about this patient is well. She said that the significant urination and incontinence is likely due to simply getting rid of the edema present postoperatively from her hip surgery and likely will resolve over the next few days on its own. If it does not, she can follow that up with Orthopedics. Urinalysis here today does not suggest any evidence of urinary tract infection. Her hemoglobin is 10 which is reasonable given her recent postoperative status. Her wondered about starting iron and I recommended that they wait until she certainly done with her narcotics as I think that will only contribute to further problems with constipation. I think with a hemoglobin of 10 after hip surgery she probably will rebound from that without taking iron but they can discuss that further with Orthopedics or primary care. Return at any time to the emergency department if she does develop significant shortness of breath, weakness, inability to manage at home, or has other concerns. Vital Signs Vital signs: Initial Vital Signs Temperature 98.0 F 11/17/21 09:26 Temperature Source Temporal Artery Scan 11/17/21 09:26 Pulse Rate 78 11/17/21 09:26 Respiratory Rate 20 11/17/21 09:26 Blood Pressure 147/78 H 11/17/21 09:26 Blood Pressure Mean 101 11/17/21 09:26 Blood Pressure Position Sitting 11/17/21 09:26 Pulse Oximetry 96 11/17/21 09:26 Oxygen Delivery Method 11/17/21 09:26 Vital Signs Temperature 98.0 F 11/17/21 09:26 Pulse Rate 78 11/17/21 09:26 Respiratory Rate 20 11/17/21 09:26 Blood Pressure 147/78 H 11/17/21 09:26 Pulse Oximetry 96 11/17/21 09:26 Temperature 98.0 F 11/17/21 09:26 Pulse Rate 77 11/17/21 11:22 Respiratory Rate 16 11/17/21 11:22 Blood Pressure 155/76 H 11/17/21 11:22 Pulse Oximetry 98 11/17/21 11:22 Medical Decision Making Lab Data Labs: Lab Results 11/17/21 11/17/21 11/17/21 Range/Units 10:32 10:32 10:32 WBC 8.02 (4.50-11.00) K/uL RBC 3.38 L (4.00-5.20) m/uL Hgb 10.0 L (12.0-16.0) gm/dL Hct 30.5 L (33.0-51.0) % MCV 90 (80-100) fL MCH 30 (26-34) pg MCHC 33 (32-36) gm/dL RDW Coeff of [place] 13.7 (11.5-15.5) % Plt Count 214 (140-440) K/uL Neut % (Auto) 75.5 H (42.0-72.0) % Lymph % (Auto) 14.1 L (20-44) % [place] % (Auto) 9.4 (0.0-11.0) % Eos % (Auto) 0.7 (0.0-7.0) % Baso % (Auto) 0.2 (0.0-3.0) % Neut # (Auto) 6.10 (1.7-7.0) K/uL Lymph # (Auto) 1.10 (0.90-2.90) K/uL [place] # (Auto) 0.80 (0.00-0.90) K/UL Eos # (Auto) 0.06 (0.00-0.50) K/uL Baso # (Auto) 0.02 (0.00-0.30) K/uL Abs Immat Gran (auto) 0.01 (0.00-0.30) K/uL D-Dimer Quant (PE/DVT) 1.64 H (0.00-0.50) ug/ml Sodium 137 (135-149) mmol/L Potassium 3.8 (3.6-5.1) mmol/L Chloride 105 (96-114) mmol/L Carbon Dioxide 27 (20-32) mmol/L BUN 12 (7-30) mg/dL Creatinine 0.8 (0.5-1.5) mg/dL Estimated Creat Clear 39.20 Estimated GFR 73 ml/min Glucose 103 (60-115) mg/dL Calcium 8.7 (8.4-10.6) mg/dL Total Bilirubin 0.8 (0.1-1.5) mg/dL Direct Bilirubin 0.0 (0.0-0.5) mg/dL AST 70 H (12-35) U/L ALT 26 (4-35) U/L Alkaline Phosphatase 65 (40-150) U/L Troponin I < 0.01 L (0.01-0.04) ng/mL NT-Pro-B Natriuret Pep 670 H (0-450) PG/mL Total Protein 6.5 (6.0-8.3) g/dL Albumin 3.5 (3.3-5.0) g/dL Urine Color (Yellow) Urine Appearance (Clear) Urine pH (5.0-8.5) Ur Specific [place] (1.000-1.030) Urine Protein (Negative) Urine Glucose (UA) (Negative) Urine Ketones (Negative) Urine Blood (Negative) Urine Nitrite (Negative) Urine Bilirubin (Negative) Urine Urobilinogen (0.2-1.0) Ur Leukocyte Esterase (Negative) Urine RBC (0-2) Urine WBC (0-5) Ur Squamous Epith Cells (None-Few) Urine Bacteria (None) 11/17/21 Range/Units 11:10 WBC (4.50-11.00) K/uL RBC (4.00-5.20) m/uL Hgb (12.0-16.0) gm/dL Hct (33.0-51.0) % MCV (80-100) fL MCH (26-34) pg MCHC (32-36) gm/dL RDW Coeff of [place] (11.5-15.5) % Plt Count (140-440) K/uL Neut % (Auto) (42.0-72.0) % Lymph % (Auto) (20-44) % [place] % (Auto) (0.0-11.0) % Eos % (Auto) (0.0-7.0) % Baso % (Auto) (0.0-3.0) % Neut # (Auto) (1.7-7.0) K/uL Lymph # (Auto) (0.90-2.90) K/uL [place] # (Auto) (0.00-0.90) K/UL Eos # (Auto) (0.00-0.50) K/uL Baso # (Auto) (0.00-0.30) K/uL Abs Immat Gran (auto) (0.00-0.30) K/uL D-Dimer Quant (PE/DVT) (0.00-0.50) ug/ml Sodium (135-149) mmol/L Potassium (3.6-5.1) mmol/L Chloride (96-114) mmol/L Carbon Dioxide (20-32) mmol/L BUN (7-30) mg/dL Creatinine (0.5-1.5) mg/dL Estimated Creat Clear Estimated GFR ml/min Glucose (60-115) mg/dL Calcium (8.4-10.6) mg/dL Total Bilirubin (0.1-1.5) mg/dL Direct Bilirubin (0.0-0.5) mg/dL AST (12-35) U/L ALT (4-35) U/L Alkaline Phosphatase (40-150) U/L Troponin I (0.01-0.04) ng/mL NT-Pro-B Natriuret Pep (0-450) PG/mL Total Protein (6.0-8.3) g/dL Albumin (3.3-5.0) g/dL Urine Color Yellow (Yellow) Urine Appearance Clear (Clear) Urine pH 8.0 (5.0-8.5) Ur Specific [place] 1.020 (1.000-1.030) Urine Protein Trace A (Negative) Urine Glucose (UA) Negative (Negative) Urine Ketones 2+ A (Negative) Urine Blood Trace-intact A (Negative) Urine Nitrite Negative (Negative) Urine Bilirubin Negative (Negative) Urine Urobilinogen 1.0 (0.2-1.0) Ur Leukocyte Esterase Negative (Negative) Urine RBC 2-5 A (0-2) Urine WBC 0-2 (0-5) Ur Squamous Epith Cells Moderate A (None-Few) Urine Bacteria Few A (None) Discharge Plan Discharge Clinical Impression: Urinary incontinence, Status post left hip replacement, Acute postoperative anemia due to expected blood loss Patient Disposition: Home, Self-Care Condition: Stable Instructions: Urinary Incontinence (ED) Additional Instructions: Follow-up with orthopedics as planned. Urinary symptoms will likely improve over the next few days. If not, discuss further with Orthopedics. If you have any worsening shortness of breath, return at any time. If you have new soap such as fever, chest pain, inability to function at home, return to the emergency department. Prescriptions: No Action cholecalciferol (vitamin D3) 25 mcg (1,000 unit) tablet 1,000 unit PO DAILY 0RF lutein-zeaxanthin 20 mg- 1,000 mcg capsule PO DAILY 0RF omega 9-fhw-ext-fish oil [Fish Oil] 1,000 mg (120 mg-180 mg) capsule 1 cap PO DAILY 0RF simvastatin 20 mg tablet 20 mg PO HS 0RF meloxicam 7.5 mg tablet 7.5 mg PO DAILY PRN0RF Hold Instructions: Resume on 11/20/21. Hold medication while taking rivaroxaban. oxycodone 5 mg tablet 2.5 - 5 mg PO Q4-6H MDD 6 PRN (Reason: pain) Qty: 30 0RF Rx Instructions: Take as needed for pain: 2.5mg mild pain, 5mg moderate-severe pain. Wean as tolerated. sennosides-docusate sodium [Senna-S] 8.6-50 mg tablet 1 - 2 tab-cap PO BID Qty: 60 0RF Rx Instructions: Hold medication if experiencing loose stools. rivaroxaban 10 mg tablet 10 mg PO DAILY Qty: 4 0RF Rx Instructions: Medication for deep vein clot prevention post surgery. Complete this medication before starting Aspirin. aspirin 81 mg tablet,delayed release (DR/EC) 81 mg PO BID Qty: 50 0RF Rx Instructions: For deep vein clot prevention post surgery. Start this medication after completing Rivaroxaban. Take twice daily. acetaminophen 500 mg capsule 500 - 1,000 mg PO Q6-8H MDD 4000mg PRNQty: 100 0RF Follow Up/Referrals: Evangelina Pope MD [Primary Care Provider] - Stand Alone Forms: [employer] Info Instructions
[2021-11-17 11:24] LABS: D Dimer Quantitative* 1.64 ug/ml (0.00-0.50)
[2021-11-17 11:25] LABS: Troponin I* < 0.01 ng/mL (0.01-0.04)
[2021-11-17 11:34] LABS: Appearance Urine Clear (Clear); Bilirubin Urine Negative (Negative); Blood Urine Trace-intact (Negative); Color Urine Yellow (Yellow); Glucose Urine Negative (Negative); Ketones Urine 2+ (Negative); Leukocyte Esterase Urine Negative (Negative); Nitrite Urine Negative (Negative); Protein Urine Trace (Negative)
[2021-11-17 11:49] LABS: Bacteria Urine Few; Squamous Epithelial Cell Urine Moderate (None-Few); WBC Urine 0-2 (0-5)
--- NOTE | 2021-11-17 12:03 | CRLHL7_ITS ---
For Patients: As a result of the Cures Act, medical imaging exams and procedure reports are released immediately into your electronic medical record. You may view this report before your referring provider. If you have questions, please contact your health care provider. INDICATION: Shortness of breath. Recent total hip arthroplasty. Elevated D-dimer. COMPARISON: None available TECHNIQUE: CT examination of the chest was performed with the uneventful intravenous administration of 95 cc of Isovue 370 while 1.5 mm thick axial sections were obtained from above the apices of the lungs through the mid renal level. Please note that all CT scans at this facility use dose modulation, iterative reconstruction, and/or weight-based dosing when appropriate to reduce radiation dose to as low as reasonably achievable. FINDINGS: : There is no sign of pulmonary embolism, with normal enhancement and branching of the pulmonary arteries. There is mild bilateral apical pleural and subpleural scarring. The lungs are otherwise clear. There is no sign of mediastinal or hilar mass or adenopathy. The heart is normal in appearance for the patient`s age. There is age appropriate appearance of the thoracic aorta and ascending great vessels. There is no sign of supraclavicular or axillary mass or adenopathy. The visualized superior liver, spleen, pancreas, left kidney, and adrenals are normal in appearance. There is a small hiatal hernia. The osseous structures are normal in appearance for the patient`s age. IMPRESSION: No sign of pulmonary embolism. No active disease in the chest. Mild bilateral apical pleural scarring. Small hiatal hernia. Please note that all CT scans at this facility use dose modulation, iterative reconstruction, and/or weight-based dosing when appropriate to reduce radiation dose to as low as reasonably achievable. Dictated by Jefferson Carrion MD @ 11/17/2021 1:33:18 PM (Electronically Signed)
--- NOTE | 2021-11-17 12:03 | CRLHL7_ITS ---
For Patients: As a result of the Cures Act, medical imaging exams and procedure reports are released immediately into your electronic medical record. You may view this report before your referring provider. If you have questions, please contact your health care provider. INDICATION: Possible constipation. COMPARISON: None available. FINDINGS: Erect and supine films of the abdomen were obtained. In the abdomen, there is no sign of distention of the small bowel or colon to suggest obstruction or ileus. There is no sign of free air or distinct mass. Fecal burden is unremarkable, with a normal amount of fecal material distributed throughout the colon and rectum. Nothing is seen that would be suggestive of constipation. There is appropriate excretion of contrast into the urinary systems from recent CT pulmonary angiography. There is mild right hydronephrosis and hydroureter extending to the UVJ, suggesting a distal ureteral obstruction. A calculus is not evident on these images. The left collecting system and ureter are normal in appearance with no sign of obstruction. There is satisfactory appearance of the superior portion of a left total hip prosthesis. Again seen is severe primary osteoarthritis of the right hip with prominent joint space narrowing, moderate sclerosis of the articular surfaces, and moderate marginal osteophyte formation. Again seen is mild flattening of the lateral right femoral head. The lung bases are clear. IMPRESSION: No sign of obstruction or ileus. Nothing seen that would suggest constipation, with normal fecal burden. Mild right hydronephrosis and right hydroureter of uncertain etiology. Stable severe primary osteoarthritis of the right hip. Stable appearance of a left total hip prosthesis. Dictated by Jefferson Carrion MD @ 11/17/2021 1:38:38 PM (Electronically Signed)
[2021-11-17 12:45] VITALS: BP 142/83; PULSE 76; RESP 18; O2SAT 96
[2021-11-17 13:43] VITALS: PULSE 79; RESP 19; O2SAT 96
== END 2021-11-17 13:50 | disposition home or self-care (01) ==
PROVIDERS: Emergency Provider Emergency Medicine; PCP Family Medicine
DX: R32 Unspecified urinary incontinence (principal); D62 Acute posthemorrhagic anemia; Z13.0 Encounter for screening for diseases of the blood and blood-forming organs and certain disorders involving the immune mechanism
CPT/HCPCS: 36415; 71260; 74019; 80048; 80076; 81001; 83880; 84484; 85025; 85379; 87086; 87186; 93005; 99284; 99285; Q9967

== ENCOUNTER 2021-12-06 12:00 | Outpatient (RCR) | payer OTHER, SELFPAY ==
--- NOTE | 2021-11-07 10:37 | PT.OPEX ---
PT [place] Outpatient Eval PT [facility] Outpatient Eval Start: 11/07/21 07:23 Freq: Status: Active Protocol: Document 11/07/21 10:12 MARTITA (Rec: 11/07/21 10:32 MARTITA [id number]) E-Signed By Ana Garibay, PT Physical Therapy Outpatient Evaluation Insurance Information Recert Due Date 02/05/22 Insurance Name Medicare B,Other; See Comments Insurance Information/Comments [employer] Medical Diagnosis Pre-operative left ALLAN Treating Diagnosis Left hip pain, limited hip ROM , impaired strength, impaired gait, impaired balance Referring MD Jessica Subjective Subjective Patient presents to PT with primary complaint of left hip pain with gradual onset over the past 3-4 months. She started developing hip pain following R knee scope July of 2021. Left hip pain has affected her gait to the point she is no longer able to walk 2 miles a day, A/D stairs and play golf without discomfort. She lives with in split level home with 2 stairs to enter and 7 stairs to get up to bedroom/bathroom. 1 step to go down to living room/ kitchen. at home to assist following surgery/drive to appointments. She has FWW and cane at home. Higher toilet seats and walk-in shower. PMH: breast cancer, left shoulder RCR Pain Comments 08/05 Date of Next Physician Visit 11/14/21 Date of Surgery (If applicable) 11/14/21 Current Work Status Retired Preferred Name Elizabeth Precautions Weight Bearing Status Weight Bear as Tolerated Therapy Limitations/Systems Review Not Limited Objective Other/Pertinent Objective UE ROM and strength: WNL Gait: limited stance time L LE , neutral terminal L hip extension, no AD SL balance: trendelenburg stance L LE, 5 sec L without UE support, 10 sec R without UE support LE ROM (R/L): -Hip Ext: 10/neutral -Hip Flx: 120/110 -Hip ER: 40/35 -Hip IR: 10/5 LE Strength (R/L): -Knee Ext: R: 4+/5, L: 4+/5 -Knee Flex: R: 5/5, L: 5/5 -Hip Abd: R: 4+/5, L: 4/5 -Hip Flx: R: 5/5, L: 5/5 Assessment Assessment/Impression Pt presents with signs and symptoms consistent with primary L hip OA. DOS: scheduled for 11/14/21. Anticipated deficits/ impairments in pain, ROM, and strength. Pt would benefit from skilled PT interventions to facilitate preparation for upcoming surgery and optimization of return to PLOF following surgery. She demonstrates independence with HEP and use of FWW as well as appropriate gait pattern on stairs. She is appropriate to proceed with surgery at this time and has a safe d/c plan. All questions answered today. Primary Functional Limitations Walking, squatting, stair negotiation, recreational activities such as playing golf Plan of Care Rehabilitation Potential Good Physical Therapy Goals By end of session today, patient will... Demonstrate appropriate gait pattern with FWW to utilize post surgery for optimal safety when ambulating Demonstrate ability to negotiate stairs using appropriate stair pattern post surgery for optimal safety when at home and in community Verbalize understanding of most appropriate home set up including needed equipment for optimal safety and recovery post surgery Be independent in HEP program to show ability to perform appropriate exercises post surgery Treatment Plan/Direct Interventions Gait Training,Ice/Cold/ Vasopneumatic,Joint Mobilization,Manual Therapy, Neuromuscular Re-ed,Self-Care/ Home Management,Therapeutic Activities,Therapeutic Exercises Frequency/Duration 1 time prior to surgery, 1-2 times per week for 6-8 weeks following surgery Patient Will Be Discharged From Therapy Completion of LTG(s), Independent w/HEP, Independently Progressing Evaluation Billing Untimed Code Treatment Minutes 18 Complexity Low Certification Information Initial Certification Date 11/07/21 Ending Certification Date 02/05/22
--- NOTE | 2021-11-22 13:08 | PT.OPDNX ---
PT [facility] Daily Note PT [facility] Daily Note Start: 11/07/21 07:23 Freq: Status: Active Protocol: Document 11/22/21 11:34 MARTITA (Rec: 11/22/21 12:01 MARTITA [id number]) E-Signed By Ana Garibay, PT PT OP Daily Progress Note Visit Information Note Type Re-Evaluation Visit Number 2 Insurance Authorized Visits - Physician Authorized Visits As needed Insurance Information Recert Due Date 02/14/22 Insurance Name Medicare B,Other; See Comments Insurance Information/Comments [employer] Medical Diagnosis Post-operative left ALLAN (left hip pain) Treating Diagnosis Left hip pain, limited hip ROM , impaired strength, impaired gait, impaired balance Referring MD Lopez Subjective Subjective Elizabeth underwent L ALLAN 11/14/[address] Lopez. She underwent a normal hospital stay with discharge the following morning. She subsequently was having incontinence following and was seen in ER. She was checked for bladder infection as well as EKG as was concerned that she was SOB and fatigued with walking to the bathroom. Patient has not been too concerned by this and felt that it was normal after surgery. EKG was unremarkable. She was prescribed medication for bladder infection and taking for another 5 days. Bladder symptoms have since resolved and denies fever, SOB , chest pain, N/T distal to surgical site, calf pain. She had follow up with Alonzo WALSH yesterday who advised to continue with current routine and proceed with PT. Patient presenting today without AD and states she has gotten back to stair negotiation with reciprocal pattern. Currently having difficulty with walking longer distances d/t pain and weakness, lifting leg to get in/out of bed, donning/doffing shoes/socks, bending, floor transfers, sleeping throughout the night. Pain Comments 7/10 worst after surgery Precautions Weight Bearing Status Weight Bear as Tolerated Objective Other/Pertinent Objective Gait: limited stance time L LE , neutral terminal L hip extension, no AD SL balance: trendelenburg stance L LE, 5 sec L without UE support, 10 sec R without UE support LE ROM (R/L): -Hip Ext: 10/neutral -Hip Flx: 120/90 -Hip ER: 40/25 -Hip IR: 10/neutral LE Strength (R/L): -Knee Ext: R: 4+/5, L: 4+/5 -Knee Flex: R: 5/5, L: 5/5 -Hip Abd: R: 4+/5, L: 2+/5 -Hip Flx: R: 5/5, L: 2+/5 -Hip ER: R: 4+/5, L: 3+/5 Homans sign - Denies SOB, urinary incontinence, chest pain No signs/symptoms of infection Functional Test Performed & Score LEFS: 37/80 Patient Instructed in Risks/Benefits Yes Therapeutic Exercise Therapeutic Exercise Minutes (minutes) 15 Therapeutic Exercise: To Restore Review of post-op ALLAN Functional Status exercises -ankle pumps, heel slide, hamstring iso, glut squeeze, standing hip abd, quad set Added to HEP: -SLR w/strap -bridge -SL balance -bike for ROM Manual Therapy Techniques Manual Therapy Minutes (minutes) 10 Manual Therapy Techniques Supine milking massage for edema management PROM hip flex/ext/ER/IR Gait & Stair Training Gait Training/Stairs Minutes (minutes) 5 Gait & Stair Training Comments Gait training without AD 2x100 ' educated on glut squeeze with stance on L LE to reduce limp Stair negotiation with use of uni railing L ascend: demonstrating normal mechanics and safety with reciprocal pattern on stairs Treatment Minutes Untimed Code Treatment Minutes 18 Timed Code Treatment Minutes 30 Total Treatment Time 48 Billing Units Manual Therapy Units 1 Therapeutic Exercise Units 1 Re-Evaluation Units 1 Assessment/Impression Assessment/Impression Pt presents with signs and symptoms consistent with s/p left ALLAN. DOS: 11/14/21. Anticipated deficits/ impairments in pain, ROM, and strength. Pt would benefit from skilled PT interventions to facilitate return to PLOF and walking longer distances without antalgic gait, lifting leg to get in/out of bed, donning/doffing shoes/socks, bending, floor transfers, sleeping throughout the night. Plan of Care Physical Therapy Goals Goals updated 11/22/21: By 4 weeks (04/18/21) Pt will be able to ascend/ descend 1 flight of stairs in order to perform ADLs pain free. MET Pt will demonstrate full and pain free hip ROM in order to perform all ADLs including don /doffing shoes/socks By 8 weeks (05/16/21) Pt will exhibit 9 pt improvement in LEFS Outcome measure to demonstrate functional improvement and progress towards goals. Pt will tolerate gradual progression back to ADLs with <2/10 pain Patient will transition from walker to cane to independent gait with normal mechanics. Independent 11/22 however antalgic gait noted Patient is able to sleep with waking 0-1 times per week due to pain. Daily Plan of Care Continue per POC Daily Plan of Care Comments Progress post operative ALLAN program Recertification Information Clinical Certification # #[id number] Patient's H.I.C.N.# # Initial Certification Date 11/22/21 Most Recent Visit 11/22/21 I Certify That I Have Established All Therapy Services/Plan Therapist Signature & License Number Ana Garibay DPT [id number] Physician Signature Shows Agreement Dates & Medical Necessity Physician Comment/Change Comment or Changes Physician Signature & Date Please Sign/Date Here Physician NPI Number #
== END 2021-12-07 07:52 | disposition home or self-care (01) ==
PROVIDERS: PCP Family Medicine; Visit Provider Orthopaedic Surgery Sports Medicine
DX: M25.552 Pain in left hip (principal); R26.9 Unspecified abnormalities of gait and mobility; Z51.89 Encounter for other specified aftercare
CPT/HCPCS: 97110; 97112; 97140; 97161; 97164; 97530

== ENCOUNTER 2022-01-24 12:59 | Outpatient (CLI) | payer OTHER, SELFPAY ==
--- NOTE | 2022-01-24 13:30 | CRLHL7_ITS ---
For Patients: As a result of the Century Cures Act, medical imaging exams and procedure reports are released immediately into your electronic medical record. You may view this report before your referring provider. If you have questions, please contact your health care provider. DXA BONE MINERAL DENSITY STUDY Reason for exam: Screening. Current height (in): 60. Weight (lb): 142. Menopause age: 50. Ethnicity: White. 1. Have you had a previous hip or vertebral fracture? No. 2. Have you had any fractures during your adult life which did not result from significant trauma (e.g., auto accident)? No. 3. Did either of your parents have a hip fracture? No. 4. Do you smoke? No. 5. Have you ever taken Glucocorticoids? No. 6. Do you have rheumatoid arthritis? No. 7. Do you have secondary osteoporosis? No. 8. Do you drink 3 or more alcoholic drinks per day? No. 9. Are you being treated for osteoporosis? No. 10. Have you ever taken any of the following medications: Actonel, Evista, Fosamax, Miacalcin, Reclast, Boniva, Forteo, HRT (i.e. estrogen/hormone therapy), Protelos, Prolia, Vitamin D, Calcium, other ??? please specify. ANSWER: Yes, vitamin D and calcium. 11. Do you have any of the following medical conditions: Anorexia or bulimia, asthma or emphysema, end stage renal disease, hyperparathyroidism, any seizure disorders, cancer, inflammatory bowel diseases, hysterectomy, other ??? please specify. ANSWER: No. 12. What was your maximum height (inches)? 61. 13. Do you perform weight bearing exercise regularly? Yes. 14. Do you regularly consume dairy products? Yes. 15. Do you drink caffeinated beverages? Yes. If female: 16. At what age did your period start? 14. 17. Are you premenopausal? No. 18. How many full term pregnancies have you had? 4. 19. Have you ever missed your period for more than 6 months in a row (not including or menopause)? No. TECHNIQUE: Bone mineral density study was performed using the [employer]. FINDINGS: The results of the study expressed as bone mineral density (BMD) are as follows: Lumbar spine L1 to L3: BMD: 1.029 g/cm2. T-score: 0.1. Z-score: 2.9 Neck Right: BMD: 0.823 g/cm2. T-score: -0.2. Z-score: 2.3 Total Right: BMD: 0.859 g/cm2. T-score: -0.7. Z-score: 1.7 Radius Left 33%: BMD: 0.646 g/cm2. T-score: -0.8. Z-score: 2.9 IMPRESSION: Normal bone density. *Comparison exams done prior to 09/2019 were performed on different unit, [facility]. COMPARISON: Compared with scan of 03/23/2018, the bone mineral density has increased by 0.2 percent at the spine and increased by 5.3 percent at the hip. Compared with scan of 02/13/2012, the bone mineral density has decreased by 2.2 percent at the spine and decreased by 5.3 percent at the hip. Monty Ahuja M.D. Diagnostic Radiologist [email or web address] GIFTY/raissa haji/Dictated by: Monty Ahuja MD @ 01/25/2022 8:14:00 AM (Electronically Signed)
== END 2022-01-24 13:00 | disposition home or self-care (01) ==
LOC: RAD 13:00
PROVIDERS: PCP Family Medicine; Visit Provider Physician Assistant Medical
DX: Z13.820 Encounter for screening for osteoporosis (principal); Z78.0 Asymptomatic menopausal state
CPT/HCPCS: 77080

== ENCOUNTER 2022-04-04 13:34 | Outpatient (CLI) | payer OTHER, SELFPAY ==
--- NOTE | 2022-04-04 | CRLHL7_ITS ---
For Patients: As a result of the Century Cures Act, medical imaging exams and procedure reports are released immediately into your electronic medical record. You may view this report before your referring provider. If you have questions, please contact your health care provider. LEFT SCREENING MAMMOGRAM WITH COMPUTER-AIDED DETECTION TECHNIQUE: CC and MLO views were obtained. These mammographic images have been obtained using full-field digital technique. These mammographic images were interpreted with the benefit of computer-aided detection. COMPARISON FILM: 03/24/20, 03/11/19, 03/09/18. . FINDINGS: There are scattered areas of fibroglandular density IMPRESSION: There is no radiographic evidence for malignancy. ASSESSMENT: BI-RADS Category 1: Negative RECOMMENDATION: Routine screening mammogram in 1 year. A lay language report of this examination will be provided to the patient. Monty Ahuja M.D. Diagnostic Radiologist [email or web address] Transcribed: 2:06 pm DW/Dictated by: Monty Ahuja MD @ 04/05/2022 8:21:00 AM (Electronically Signed)
== END 2022-04-04 13:35 | disposition home or self-care (01) ==
LOC: MAMMO 13:36
PROVIDERS: PCP Physician Assistant Medical; Visit Provider Family Medicine
DX: Z12.31 Encounter for screening mammogram for malignant neoplasm of breast (principal)
CPT/HCPCS: 77067

== ENCOUNTER 2022-04-05 07:01 | Outpatient (CLI) | payer OTHER, SELFPAY ==
[2022-04-05 12:34] LABS: Albumin* 4.6 g/dL (3.3-5.0); Chloride* 105 mmol/L (96-114)
[2022-04-05 12:35] LABS: Potassium* 4.4 mmol/L (3.6-5.1); Sodium* 141 mmol/L (135-149)
[2022-04-05 12:37] LABS: Aspartate Amino Transferase* 30 U/L (12-35); Bilirubin Total* 0.8 mg/dL (0.1-1.5); Blood Urea Nitrogen* 16 mg/dL (7-30); Carbon Dioxide* 30 mmol/L (20-32); Cholesterol* 221 mg/dL (90-199); Estimated Glomerular Filt Rate 55 ml/min; Total Protein* 7.4 g/dL (6.0-8.3)
[2022-04-05 12:38] LABS: Alanine Aminotransferase* 18 U/L (4-35); Alkaline Phosphatase* 61 U/L (40-150); Calcium* 9.8 mg/dL (8.4-10.6); Glucose* 83 mg/dL (60-115); HDL Cholesterol* 81 mg/dL (>=50); LDL Cholesterol Calculated 119 mg/dL (<100); Triglycerides* 103 mg/dL (40-149)
[2022-04-05 13:47] LABS: Free T4 Free Thyroxine* 0.77 ng/dL (0.70-1.85)
== END 2022-04-05 07:02 | disposition home or self-care (01) ==
PROVIDERS: PCP Physician Assistant Medical; Visit Provider Physician Assistant Medical
DX: Z00.00 Encounter for general adult medical examination without abnormal findings (principal); D62 Acute posthemorrhagic anemia; E78.5 Hyperlipidemia, unspecified; E03.9 Hypothyroidism, unspecified; N39.0 Urinary tract infection, site not specified
CPT/HCPCS: 80053; 80061; 84439; 84443

== ENCOUNTER 2022-12-17 10:30 | Outpatient (RCR) | payer OTHER, SELFPAY ==
--- NOTE | 2022-12-10 11:57 | PT.OPEX ---
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 She does not wear a pad and does not carry a change of clothing with her. She states she normally is ok when out of the house, but when she is home she is going to the bathroom all the time. She has had 4 children, all vaginal deliveries. Last baby was near 10#. She does know what kegels are, and has been doing a few reps here and there for a short time. She goes to an ex class Movement and Balance and a Core class, some ex in the gym too. Have been doing this for 20 years. Walk daily too. Used to walk every morning for about 3-4 miles, then reduced to 2 miles per day. Have slowed down a bit with her Lt hip surgery last year, walks maybe a mile per day 3-4 X/Wk. She states she sleeps poorly, wakes up and goes to the bathroom at least 2X/Night. Get up for about 2 hours per night to read, etc. Insomnia. Does not wake up to use the bathroom, but since she is up, she goes to the bathroom. No bed wetting. Pain Comments NA Date of Last Physician Visit 09/26/22 Preferred Name Cherie Precautions Treatment Precautions/Contraindications Osteopenia, Osteoarthritis, Lumbar DDD, Rt mastectomy, Lt ALLAN, Rt knee scope, Shoulder surgery Weight Bearing Status Full Weight Bearing Therapy Limitations/Systems Review Vision Assessment Assessment/Impression 87 yo with DX of Pelvic floor dysfunction with Cystocele - fecal and urinary leakage. She presents with slightly flattened lumbar spine. Good Trunk AROM, able to sit to stand without use of arms on chair. Good balance - SLS 10+ seconds (had second toe removed from Lt foot). She can walk in heel raised and toe raised position. (-) slump test and supine SRL. Hip is slightly reduced in AROM in IR (0-8 deg) and EXT (0-3 eg pacheco ) but are completed pain free. MMT 3+/5 pacheco hip EXT and ABD. She is independent in all bed mob. She can complete step up and over, but exhibits reduced eccentric quad control and hip ADD/IR denoting hip weakness. She will benefit from continued skilled physical therapy to advance in beyond kegel HEP, with hip strength/stretch and breathing awareness/education. Thank you for this referral. Plan of Care Rehabilitation Potential Good Physical Therapy Goals In 4-6 visits, Francesca will be able to report: 1. IND in proper execution of entire HEP with emphasis on reps, alignment and HOLD time 2. Reduced report of fecal smearing by at least 25% 3. Reduced report of urine leakage by at least 25% 4. Dry/clean panties at least 3 days per week as LTG 5. Increased hip strength to at least 4/5 with compliance with HEP, this will promote increased PFM strength and control. Coordination/Communication With Referral Source Treatment Plan/Direct Interventions Joint Mobilization,Manual Therapy,Neuromuscular Re-ed, Self-Care/Home Management, Therapeutic Activities, Therapeutic Exercises Patient Will Be Discharged From Therapy Completion of LTG(s),Skills Plateau,Independent w/HEP, Independently Progressing Evaluation Billing Untimed Code Treatment Minutes 25 Complexity Moderate Certification Information Initial Certification Date 12/10/22 Ending Certification Date 03/06/23 Provider Signature Shows Agreement With POC & Medical Necessity Physician Signature & Date Requested Please Sign/Date Here Physician Comment/Change : Physician NPI Number #
== END 2023-03-13 17:28 | disposition home or self-care (01) ==
PROVIDERS: PCP Family Medicine; Visit Provider Family Medicine
DX: M62.89 Other specified disorders of muscle (principal); R53.1 Weakness; R15.9 Full incontinence of feces; Z51.89 Encounter for other specified aftercare; R32 Unspecified urinary incontinence; N81.10 Cystocele, unspecified
CPT/HCPCS: 97110; 97140; 97162

== ENCOUNTER 2023-03-26 20:25 | Outpatient (CLI) | payer OTHER, SELFPAY ==
--- NOTE | 2023-04-01 08:51 | W.PM.SLEEP ---
Sleep Study Details Details Interpreting Provider: Anisa Date of Sleep Study: 03/26/23 Sleep Study Details: STUDY TYPE:? Hospital polysomnogram ? BMI:? 23.9 ORDERING PROVIDER:? Miles INDICATION:? Concerns about sleep apnea ? SLEEP SUMMARY:? 320 minutes total sleep time, arousal index 13.7 RESPIRATORY SUMMARY:? Mean oxygen awake 93 asleep 93 minimum 88 0.3 minutes oxygen between 80 and 88% AHI overall 5.1, RDI 12.4 Supine AHI 60, no supine REM sleep seen Nonsupine AHI 3.5, nonsupine RDI 9.8, nonsupine REM AHI 14.9 PERIODIC LIMB MOVEMENTS OF SLEEP:? None were noted CARDIAC:? Awake 66 asleep 65, no arrhythmias noted IMPRESSION:? The overall AHI is 5.1 and RDI 12.4. 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 RECOMMENDATION: Treatment options would include AutoSet CPAP pressure 4-17, dental appliance, a trial of positional therapy with avoidance of supine sleep.
== END 2023-03-26 20:26 | disposition home or self-care (01) ==
LOC: SLEEP 20:27
PROVIDERS: PCP Family Medicine; Visit Provider Family Medicine
DX: G47.33 Obstructive sleep apnea (adult) (pediatric) (principal)
CPT/HCPCS: 95810

== ENCOUNTER 2023-08-28 08:53 | Outpatient (CLI) | payer OTHER, SELFPAY ==
--- OUTSIDE RECORDS SUMMARY | 2023-08-29 05:33 | XMS_ITS | Clinical Summary ---
Author Name Unknown Organization [facility] Address [address], [place] [address] Care Team Providers Care Integration Manager Name Role Phone Unassigned, Provider Primary Care Provider Unava ilable Source Comments You are receiving this document as you are listed as the primary care provider,follow-up provider, or the patient has been referred to you for consultation.This is in compliance with the Medicare and[facility] EHR Incentive Program,which states Providers who transition their patient to another setting of careor provider of care or refers their patient to another provider of care shouldprovide summary care record for each transition of care or referral. [email or web address] Center[facility] Data Allergies No known active allergies Medications Medication Sig Dispensed Refills Start Date End Date Status simvastatin (ZOCOR) 20 MG tablet 03/04/2018 Active meloxicam (MOBIC) 7.5 MG tablet 03/18/2018 Active Multiple Vitamins-Minerals (MULTIVITAL OR) 03/24/2018 Active Misc Natural Products (LUTEIN 20 OR) Active omega-3 fatty acids (MAXEPA,FISHOIL) 1000 MG capsule Take 2 g by mouth daily. Active Social History Tobacco Use Types Packs/Day Years Used Date Smoking Tobacco: Never Smokeless Tobacco: Never Alcohol Use Standard Drinks/Week Comments Yes 2 (1 standard drink = 0.6 oz pur e alcohol) Sex and Gender Information Value Date Recorded Sex Assigned at Not on file Gender Identity Not on file Sexual Orientation Not on file Last Filed Vital Signs Vital Sign Reading Time Taken Comments Blood Pressure 131/80 03/25/2018 10:53 AM HUNTING SALES ASSOCIATE Pulse 68 03/25/2018 10:53 AM HUNTING SALES ASSOCIATE Temperature - - Respiratory Rate - - Oxygen Saturation - - Inhaled Oxygen Concentration - - Weight 68.9 kg (152 lb) 03/25/2018 10:53 AM HUNTING SALES ASSOCIATE Height 166.4 cm (5' 5.5) 03/25/2018 10:53 AM CS T Body Mass Index 24.91 03/25/2018 10:53 AM HUNTING SALES ASSOCIATE Plan of Treatment Health Maintenance Due Date Last Done Comments Dexa 2002 Pneumococcal 65+ Yrs (2 - PPSV23 or PCV20) 12/07/2015 12/06/2014, 04/27/2004 DTaP/Tdap/Td (1 - Tdap) 03/13/2017 03/12/2017 COVID-19 Vaccine (3 - season) 2022 06/27/2020, 06/06/2020 Influenza (#1) 2022 02/15/2020, 01/26, 02/16/2018, Additional history exists Medicare Annual Wellness Visit 04/28/2023 Zoster/Shingles Completed 12/03/2018, 0611/2018, 04/27/2009 HepA Aged Out No longer eligi ble based on patient's age to complete this topic HepB Aged Out No longer eligi ble based on patient's age to complete this topic Hib Aged Out No longer eligi ble based on patient's age to complete this topic IPV ([place]) Aged Out No longer eligi ble based on patient's age to complete this topic MCV4 Aged Out No longer eligi ble based on patient's age to complete this topic Care Teams Integration Manager Relationship Specialty Start Date End Date Unassigned, Provider [address] [place] [id number] PCP - General 07/05/00
== END 2023-08-28 08:54 | disposition home or self-care (01) ==
LOC: NFLDREF 08-29 05:31
PROVIDERS: PCP Family Medicine; Referring Provider Family Medicine; Visit Provider Family Medicine
DX: E78.2 Mixed hyperlipidemia (principal); E03.8 Other specified hypothyroidism; M85.80 Other specified disorders of bone density and structure, unspecified site
CPT/HCPCS: 80053; 80061; 84443

== ENCOUNTER 2023-11-18 18:23 | Outpatient (CLI) | payer OTHER, SELFPAY ==
--- OUTSIDE RECORDS SUMMARY | 2023-11-18 18:25 | XMS_ITS | Clinical Summary ---
[facility] Address [address], [place] [address] Care Team Providers Care Hand Bender Name Role Phone Unassigned, Provider Primary Care Provider Unava ilable Source Comments You are receiving this document as you are listed as the primary care provider,follow-up provider, or the patient has been referred to you for consultation.This is in compliance with the Medicare and[facility] EHR Incentive Program,which states Providers who transition their patient to another setting of careor provider of care or refers their patient to another provider of care shouldprovide summary care record for each transition of care or referral. [employer] Allergies No known active allergies Medications Medication [...] Comments Blood Pressure 131/80 03/25/2018 10:53 AM DOOR HANGER Pulse 68 03/25/2018 10:53 AM DOOR HANGER Temperature - - Respiratory Rate - - Oxygen Saturation - - Inhaled Oxygen Concentration - - Weight 68.9 kg (152 lb) 03/25/2018 10:53 AM DOOR HANGER Height 166.4 cm (5' 5.5) 03/25/2018 10:53 AM CS T Body Mass Index 24.91 03/25/2018 10:53 AM DOOR HANGER Plan of Treatment Health Maintenance Due Date Last Done Comments Dexa 2002 Pneumococcal 65+ Yrs (2 - PPSV23 or PCV20) 12/07/2015 12/06/2014, 04/27/2004 DTaP/Tdap/Td (1 - Tdap) 03/13/2017 03/12/2017 COVID-19 Vaccine (3 - season) 2022 06/27/2020, 06/06/2020 Medicare Annual Wellness Visit 04/28/2023 Influenza (#1) 2023 02/15/2020, 01/26, 02/16/2018, Additional history exists Zoster/Shingles Completed 12/03/2018, 11/2018, 04/27/2009 HepA Aged Out No longer eligi [...] age to complete this topic Care Teams Hand Bender Relationship Specialty Start Date End Date Unassigned, Provider [address] [place] [id number] PCP - General 07/05/00
--- NOTE | 2023-11-18 19:00 | CRLHL7_ITS ---
For Patients: As a result of the Century Cures Act, medical imaging exams and procedure reports are released immediately into your electronic medical record. You may view this report before your referring provider. If you have questions, please contact your health care provider. LEFT SCREENING MAMMOGRAM WITH COMPUTER-AIDED DETECTION AND TOMOSYNTHESIS TECHNIQUE: CC and MLO views were obtained. These mammographic images have been obtained using full-field digital technique. These mammographic images were interpreted with the benefit of computer-aided detection. Breast tomosynthesis was used in this interpretation. COMPARISON FILM: 04/04/22, 03/24/20, 03/11/19. FINDINGS: There are scattered areas of fibroglandular density. IMPRESSION: There is no radiographic evidence for malignancy. ASSESSMENT: BI-RADS Category 1: Negative RECOMMENDATION: Routine screening mammogram in 1 year. A lay language report of this examination will be provided to the patient. MONTY CARLSON M.D. Diagnostic Radiologist [email or web address] Transcribed: 3:[address]/Dictated by: Monty Carlson MD @ 11/19/2023 10:12:00 AM (Electronically Signed)
== END 2023-11-18 18:24 | disposition home or self-care (01) ==
LOC: MAMMO 18:23
PROVIDERS: PCP Family Medicine; Visit Provider Family Medicine
DX: Z12.31 Encounter for screening mammogram for malignant neoplasm of breast (principal)
CPT/HCPCS: 77063; 77067

== ENCOUNTER 2023-12-23 07:57 | Outpatient (CLI) | payer OTHER, SELFPAY ==
--- OUTSIDE RECORDS SUMMARY | 2023-12-23 08:00 | XMS_ITS | Clinical Summary ---
[facility] Address [address], [place] [address] Care Team Providers Care Behavioral Health Director Name Role Phone Unassigned, Provider Primary Care Provider Unava ilable Source Comments You are receiving this document as you are listed as the primary care provider,follow-up provider, or the patient has been referred to you for consultation.This is in compliance with the Medicare and[facility] E[facility] Incentive Program,which states Providers who transition their patient to another setting of careor provider of care or refers their patient to another provider of care shouldprovide summary care record for each transition of care or referral. [employer] Allergies No known active allergies Medications Medication [...] Comments Blood Pressure 131/80 03/25/2018 10:53 AM FOREST TECHNICIAN Pulse 68 03/25/2018 10:53 AM FOREST TECHNICIAN Temperature - - Respiratory Rate - - Oxygen Saturation - - Inhaled Oxygen Concentration - - Weight 68.9 kg (152 lb) 03/25/2018 10:53 AM FOREST TECHNICIAN Height 166.4 cm (5' 5.5) 03/25/2018 10:53 AM CS T Body Mass Index 24.91 03/25/2018 10:53 AM FOREST TECHNICIAN Plan of Treatment Health Maintenance Due Date [...] age to complete this topic Care Teams Behavioral Health Director Relationship Specialty Start Date End Date Unassigned, Provider [address] [place] [id number] PCP - General 07/05/00
[2023-12-23] MEDS: SODIUM CHLORIDE 0.9 % (FLUSH) 10 ML SYRINGE IVF (10:41)
[2023-12-23] MEDS: REGADENOSON 0.4 MG/5 ML SYRINGE IVP (10:41)
[2023-12-23 11:06] VITALS: BP 141/82; PULSE 84
--- NOTE | 2023-12-23 11:32 | W.PM.STED ---
Stress Test Note Date Date Seen: 12/23/23 Date of test: 12/23/23 Providers Referring provider: Nadya Lowery Primary care provider: Nadya Lowery Stress test physician: Anette Rosen Stress Test Note Stress test ordered: Lexiscan Indication for test: Chest pain Stress test medicine: Lexiscan Results discussion: Resting EKG: Sinus rhythm, 65 beats per minute. Some artifact seen. Resting blood pressure: 139/80 Stress test: Patient was consented on the Lexiscan. She had a non walking Lexiscan due to limitation of activity. Patient experienced GI symptoms of nausea, some lightheadedness. She had no concerning change in her pulse or blood pressure. There was no diagnostic EKG changes concerning for ischemia. She had no arrhythmia. Her symptoms resolved by the termination of the test. Patient will complete her post stress nuclear medicine images. Will await those imaging result readings to couple this for a full formal diagnostic. Of note, patient experienced no chest discomfort like she had which was the reason for ordering this test per her report. Impression: Subjectively negative, objectively negative EKG portion of this Lexiscan. Follow up suggested: Patient will be discharged to home after she has had her imaging done, she will await final report from her ordering physician.
== END 2023-12-23 07:58 | disposition home or self-care (01) ==
LOC: STRESS 07:58
PROVIDERS: PCP Family Medicine; Visit Provider Family Medicine
DX: R07.9 Chest pain, unspecified (principal); R29.6 Repeated falls
CPT/HCPCS: 78452; 93016; 93017; A9500; J2785

== ENCOUNTER 2024-01-28 13:06 | Outpatient (CLI) | payer OTHER, SELFPAY ==
--- OUTSIDE RECORDS SUMMARY | 2024-01-28 13:15 | XMS_ITS | Clinical Summary ---
[facility] Address [address] [address] Care Team Providers Care Roof Bolter Name Role Phone Unassigned, Provider Primary Care Provider Unava ilable Source Comments You are receiving this document as you are listed as the primary care provider,follow-up provider, or the patient has been referred to you for consultation.This is in compliance with the Medicare and[facility] EHR Incentive Program,which states Providers who transition their patient to another setting of careor provider of care or refers their patient to another provider of care shouldprovide summary care record for each transition of care or referral. [employer] Allergies No known active allergies Medications Medication [...] Comments Blood Pressure 131/80 03/25/2018 10:53 AM FISHING VESSEL DECKHAND Pulse 68 03/25/2018 10:53 AM FISHING VESSEL DECKHAND Temperature - - Respiratory Rate - - Oxygen Saturation - - Inhaled Oxygen Concentration - - Weight 68.9 kg (152 lb) 03/25/2018 10:53 AM FISHING VESSEL DECKHAND Height 166.4 cm (5' 5.5) 03/25/2018 10:53 AM CS T Body Mass Index 24.91 03/25/2018 10:53 AM FISHING VESSEL DECKHAND Plan of Treatment Health Maintenance Due Date Last Done Comments Dexa 2002 RSV (1 - 1-dose 75+ series) 01/30/2012 Pneumococcal 65+ Yrs (2 - PPSV23 or PCV20) 12/07/2015 12/06/2014, 04/27/2004 DTaP/Tdap/Td (1 - Tdap) 03/13/2017 03/12/2017 Medicare Annual Wellness Visit 04/28/2023 COVID-19 Vaccine ( season) 2023 06/27/2020, 06/06/2020 Influenza (#1) 2023 02/15/2020, 01/26, 02/16/2018, Additional [...] age to complete this topic Care Teams Roof Bolter Relationship Specialty Start Date End Date Unassigned, Provider [address] [place] [id number] PCP - General 07/05/00
--- NOTE | 2024-01-28 13:30 | CRLHL7_ITS ---
For Patients: As a result of the Century Cures Act, medical imaging exams and procedure reports are released immediately into your electronic medical record. You may view this report before your referring provider. If you have questions, please contact your health care provider. DXA BONE MINERAL DENSITY STUDY Current height (in): 60. Weight (lb): 142. Menopause age: 50. Ethnicity: White. 1. Have you had a previous hip or vertebral fracture? No. 2. Have you had any fractures during your adult life which did not result from significant trauma (e.g., auto accident)? No. 3. Did either of your parents have a hip fracture? No. 4. Do you smoke? No. 5. Have you ever taken Glucocorticoids? No. 6. Do you have rheumatoid arthritis? No. 7. Do you have secondary osteoporosis? Yes. 8. Do you drink 3 or more alcoholic drinks per day? No. 9. Are you being treated for osteoporosis? No. 10. Have you ever taken any of the following medications: Actonel, Evista, Fosamax, Miacalcin, Reclast, Boniva, Forteo, HRT (i.e. estrogen/hormone therapy), Protelos, Prolia, Vitamin D, Calcium, other ??? please specify. ANSWER: Yes, vitamin D, calcium. 11. Do you have any of the following medical conditions: Anorexia or bulimia, asthma or emphysema, end stage renal disease, hyperparathyroidism, any seizure disorders, cancer, inflammatory bowel diseases, hysterectomy, other ??? please specify. ANSWER: No. 12. What was your maximum height (inches)? 61. 13. Do you perform weight bearing exercise regularly? Yes. 14. Do you regularly consume dairy products? Yes. 15. Do you drink caffeinated beverages? Yes. 16. At what age did your period start? 14. 17. Are you premenopausal? No. 18. How many full term pregnancies have you had? 4. 19. Have you ever missed your period for more than 6 months in a row (not including or menopause)? No. TECHNIQUE: Bone mineral density study was performed using the [employer]. FINDINGS: The results of the study expressed as bone mineral density (BMD) are as follows: Lumbar spine L1 to L3: BMD: 1.022 g/cm2. T-score: 0.0. Z-score: 2.8. Neck Right: BMD: 0.789 g/cm2. T-score: -0.5. Z-score: 2.0. Total Right: BMD: 0.848 g/cm2. T-score: -0.8. Z-score: 1.6. Radius Left 33%: BMD: 0.651 g/cm2. T-score: -0.7. IMPRESSION: Normal bone density. *Comparison exams done prior to 09/2019 were performed on different unit, [employer]. COMPARISON: Compared with scan of 01/24/2022, the bone mineral density has decreased by 0.7 percent at the spine, decreased by 1.3 percent at the hip and increased by 0.8 percent at the radius. Compared with scan of 03/23/2018, the bone mineral density has increased by 0.2 percent at the spine and increased by 5.3 percent at the hip. Monty Ahuja M.D. Diagnostic Radiologist [email or web address] MCKINLEY/Dictated by: Monty Ahuja MD @ 01/29/2024 12:56:00 PM (Electronically Signed)
== END 2024-01-28 13:07 | disposition home or self-care (01) ==
LOC: RAD 13:07
PROVIDERS: PCP Family Medicine; Visit Provider Family Medicine
DX: M85.88 Other specified disorders of bone density and structure, other site (principal)
CPT/HCPCS: 77080

== ENCOUNTER 2024-09-03 07:55 | Outpatient (CLI) | payer MEDICARE, SELFPAY | END 2024-09-03 07:56 | disposition home or self-care (01) | LOC: NFLDREF 09-04 08:12 | PROVIDERS: PCP Family Medicine; Referring Provider Family Medicine; Visit Provider Family Medicine | DX: E03.8 Other specified hypothyroidism (principal); E78.2 Mixed hyperlipidemia | CPT/HCPCS: 80053; 84439; 84443 ==

== ENCOUNTER 2024-09-24 13:15 | Outpatient (CLI) | payer MEDICARE, SELFPAY ==
--- NOTE | 2024-09-24 13:00 | CRLHL7_ITS ---
For Patients: As a result of the Century Cures Act, medical imaging exams and procedure reports are released immediately into your electronic medical record. You may view this report before your referring provider. If you have questions, please contact your health care provider. INDICATION: Left leg radiculopathy. COMPARISON: 09/16/2024. Technique Sagittal T1, T2, and STIR sequences. Axial T1 and T2 weighted sequences. FINDINGS: Grade 1 anterolisthesis of L4 relative to both L3 and L5 measures approximately 3 mm. Otherwise, normal alignment. No fractures. No vertebral body loss of height. No ligamentous injury. No suspicious osseous lesions. Normal conus terminates at L1. T12-L1 L1-2: No spinal canal or neural foraminal narrowing. L2-3: Disc degeneration and posterior disc bulge. Mild narrowing of spinal canal. Mild narrowing of the left neural foramen. No narrowing of the right neural foramen. L3-4: Disc degeneration and posterior disc bulge. [id number] narrowing of spinal canal. Mild narrowing of bilateral foramina. Mild os arthropathy. L4-5: Grade 1 anterolisthesis. Disc degeneration posterior disc bulge. Moderate narrowing of spinal canal. Oblique orientation of bilateral foramina with mild narrowing. Moderate arthropathy. L5-S1: Disc degeneration posterior disc bulge. No narrowing of spinal canal. No maura impingement of the traversing S1 nerve roots. There is a degenerative or synovial cyst of the left facet joint extending into the left neural foramen measuring approximately 9 x 4 mm (series 5, image 11). This contributes to moderate narrowing of the left neural foramen. No narrowing of the right neural foramen. Moderate right severe left facet arthropathy. Degenerative changes of the SI joints. IMPRESSION: 1. Grade 1 anterolisthesis of L4 relative to both L3 and L5. 2. Otherwise normal alignment. No fractures 3. Lumbar spondylosis 4. At L3-4, [id number] narrowing of the spinal canal. 5. At L4-5, moderate narrowing of the spinal canal 6. 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 Moderate narrowing of the left neural foramen. Potential impingement of the exiting left L5 nerve root Dictated by Glen Turner MD @ 09/25/2024 8:51:00 AM (Electronically Signed)
== END 2024-09-24 13:16 | disposition home or self-care (01) ==
LOC: MRI 13:19
PROVIDERS: PCP Family Medicine; Visit Provider Orthopaedic Surgery Sports Medicine
DX: M51.362 Other intervertebral disc degeneration, lumbar region with discogenic back pain and lower extremity pain (principal); M47.896 Other spondylosis, lumbar region; M51.26 Other intervertebral disc displacement, lumbar region; M54.16 Radiculopathy, lumbar region
CPT/HCPCS: 72148

== ENCOUNTER 2024-12-21 13:33 | Outpatient (CLI) | payer MEDICARE, SELFPAY ==
--- NOTE | 2024-12-21 13:20 | CRLHL7_ITS ---
For Patients: As a result of the Century Cures Act, medical imaging exams and procedure reports are released immediately into your electronic medical record. You may view this report before your referring provider. If you have questions, please contact your health care provider. INDICATION: UNILATERAL LEFT SCREENING MAMMOGRAM, ASYMPTOMATIC 89 Y/O FEMALE COMPARISON: 11/18/2023, 04/04/2022, 03/24/2020 TECHNIQUE: Digital mammogram in CC and MLO projections including computer-aided detection (CAD) and tomosynthesis. BREAST COMPOSITION: There are scattered areas of fibroglandular density. FINDINGS: No suspicious findings. ASSESSMENT: BI-RADS 1 Negative RECOMMENDATION: Annual screening mammogram. A lay language report of this examination will be provided to the patient. Dictated by: Monty Ahuja MD @ 12/22/2024 09:55:43 (Electronically Signed)
== END 2024-12-21 13:34 | disposition home or self-care (01) ==
LOC: MAMMO 13:34
PROVIDERS: PCP Family Medicine; Visit Provider Family Medicine
DX: Z12.31 Encounter for screening mammogram for malignant neoplasm of breast (principal)
CPT/HCPCS: 77063; 77067

== ENCOUNTER 2025-02-15 12:11 | Outpatient (CLI) | payer MEDICARE, SELFPAY | END 2025-02-15 12:12 | disposition home or self-care (01) | LOC: FRMREF 12:11 | PROVIDERS: PCP Family Medicine; Visit Provider Obstetrics & Gynecology | DX: S30.814A Abrasion of vagina and vulva, initial encounter (principal) | CPT/HCPCS: 87070 ==